=== PATIENT | male | born 1990 | race Caucasian/White ===

== ENCOUNTER 2016-10-02 10:03 | Inpatient (IN) | payer OTHER ==
[2016-10-02 10:38] VITALS: BMI 25.0
--- NOTE | 2016-10-02 14:56 | HP ---
COWS - Scale Resting Pulse: 0= [place] 80 or Below Sweatin= Chills/Flushing Restless Observation: 1= Difficult to Sit Still Pupil Size: 0= Normal to Room Light Bone or Joint Aches: 1= Mild Discomfort Runny Nose/ Eye Tearin= Runny Nose/Eyes GI Upset > 30mins: 2= Nausea/Diarrhea Tremor Observation: 2= Slight Tremor Visible Yawning Observation: 1= 1-2x During Session Anxiety or Irritability: 2=Irritable/Anxious Goose Flesh Skin: 3=Piloerection COWS Score: 15 CIWA Score - CIWA Score Nausea/Vomitin-Int. Nausea w/Dry Heave Muscle Tremors: 2 Anxiety: 3 Agitation: 2 Paroxysmal Sweats: 3 Orientation: 0-Oriented Tacttile Disturbances: 2-Mild Itch/Numbness/Burn Auditory Disturbances: 0-None Visual Disturbances: 0-None Headache: 3-Moderate CIWA-Ar Total Score: 19 Admission ROS BHS - HPI Chief Complaint: "I just have to get clean so that I can move forward with other areas of my life." Pt. is here to Detox from Heroin and Xanax. Allergies/Adverse Reactions: Allergies Allergy/AdvReac Type Severity Reaction Status Date / Time No Known Allergies Allergy Verified 10/02/16 13:37 History of Present Illness: Pt. is a 26 YO male here to Detox from Heroin and Xanax. This is pt.'s first Detox admission at [facility]. Pt. has had 1 previous Detox admission at [facility] many years ago. Pt. also had 1 previous rehab admission at [facility] ([place], [place]). Longest recent period of non-substance use: approx. 15 months ([id number]). Exam Limitations: No Limitations - Ebola screening Have you traveled outside of the country in the last 21 days: No Have you had contact with anyone from an Ebola affected area: No Have you been sick,other than usual withdrawal symptoms: No Do you have a fever: No - Review of Systems Constitutional: Chills, Diaphoresis, Fever, Loss of Appetite, Malaise, Night Sweats, Changes in sleep, Unintentional Wgt. Loss (Lost approx. 15 lbs. over last 3 months.) EENT: reports: Nose Congestion, Sinus Pressure, Dental Problems (Dental Infection (currently taking prescribed Penicillin).) Respiratory: reports: No Symptoms reported Cardiac: reports: No Symptoms Reported GI: reports: Diarrhea, Nausea, Poor Appetite, Vomiting, Indigestion (Heartburn.) : reports: No Symptoms Reported Musculoskeletal: reports: Back Pain Integumentary: reports: No Symptoms Reported Neuro: reports: Headache, Tremors Endocrine: reports: No Symptoms Reported Hematology: reports: No Symptoms Reported Psychiatric: reports: Judgement Intact, Mood/Affect Appropiate, Orientated x3, Anxious, Depressed (No treatment in past.) Other Systems: Reviewed and Negative Patient History - Patient Medical History Hx Anemia: No Hx Asthma: No Hx Chronic Obstructive Pulmonary Disease (COPD): No Hx Cancer: No Hx Cardiac Disorders: No Hx Congestive Heart Failure: No Hx Hypertension: No Hx Hypercholesterolemia: No Hx Pacemaker: No HX Cerebrovascular Accident: No Hx Seizures: No Hx Dementia: No Hx Diabetes: No Hx Gastrointestinal Disorders: No Hx Liver Disease: No Hx Genitourinary Disorders: No Hx Sexually Transmitted Disorders: No Hx Renal Disease (ESRD): No Hx Thyroid Disease: No Hx Human Immunodeficiency Virus (HIV): No (Last Tested: approx. 3 months ago: NEGATIVE.) Hx Hepatitis C: Yes (Positive Antibody Test; Negative Viral Load.) Hx Depression: Yes (No treatment in past.) Hx Suicide Attempt: No (PATIENT DENIES CURRENT SI / HI.) Hx Bipolar Disorder: No Hx Schizophrenia: No Other Medical History: DENIES. - Patient Surgical History Past Surgical History: No Hx Neurologic Surgery: No Hx Cataract Extraction: No Hx Cardiac Surgery: No Hx Lung Surgery: No Hx Breast Surgery: No Hx Breast Biopsy: No Hx Abdominal Surgery: No Hx Appendectomy: No Hx Cholecystectomy: No Hx Genitourinary Surgery: No Hx Orthopedic Surgery: No Anesthesia Reaction: No - PPD History Previous Implant?: Yes Documented Results: Negative w/o proof Implanted On Prior R Admission?: No PPD to be Administered?: Yes - Reproductive History Patient is a Female of Child Bearing Age (11 -55 yrs old): No (PATIENT IS MALE.) - Smoking Cessation Smoking history: Current every day smoker Have you smoked in the past 12 months: Yes Aproximately how many cigarettes per day: 10 Cigars Per Day: 0 Hx Chewing Tobacco Use: No Initiated information on smoking cessation: Yes 'Breaking Loose' booklet given: 10/02/16 (GIVEN ON UNIT.) - Substance & Tx. History Hx Alcohol Use: No Hx Substance Use: Yes Substance Use Type: Heroin, Tranquilizers Hx Substance Use Treatment: Yes (Previous Detox admission at [facility] and Rehab at [facility].) - Substances Abused Heroin Route: Injection Frequency: Daily Amount used: 10 bags Age of first use: 16 Date of Last Use: 10/01/16 Alprazolam (Xanax) Route: Oral Frequency: Daily Amount used: 2-4mg Age of first use: 17 Date of Last Use: 10/01/16 Family Disease History - Family Disease History Family History: Denies Admission Physical Exam [facility] - Vital Signs Vital Signs: Vital Signs - 24 hr 10/02/16 10:36 Temperature 96.8 F L Pulse Rate 66 Respiratory 20 Rate Blood Pressure 118/80 - Physical General Appearance: Yes: No Apparent Distress, Nourished, Appropriately Dressed , Tremorous, Anxious HEENTM: Yes: Hearing grossly Normal, Normocephalic, Normal Voice, HOWARD, Pharynx Normal Respiratory: Yes: Chest Non-Tender, Lungs Clear, No Respiratory Distress, No Accessory Muscle Use Neck: Yes: No masses,lesions,Nodules, Supple, Trachea in good position Breast: Yes: Breast Exam Deferred Cardiology: Yes: Regular Rhythm, Regular Rate, S1, S2 Abdominal: Yes: Normal Bowel Sounds, Non Tender, Flat, Soft Genitourinary: Yes: Within Normal Limits Back: Yes: Decreased Range of Motion Musculoskeletal: Yes: Gait Steady, Back pain Extremities: Yes: Normal Range of Motion, Non-Tender, Tremors Neurological: Yes: Fully Oriented, Alert, Normal Mood/Affect, Normal Response Integumentary: Yes: Normal Color, Dry, Warm, Track [place] (Noted on Bilateral Forearms and cubital creases. No signs of infection noted at any affected site.) Lymphatic: Yes: Within Normal Limits - Diagnostic (1) Opioid dependence with withdrawal Current Visit: Yes Status: Acute (2) Sedative, hypnotic or anxiolytic dependence with withdrawal, uncomplicated Current Visit: Yes Status: Acute (3) Nicotine dependence Current Visit: Yes Status: Chronic Qualifiers: Nicotine product type: cigarettes Substance use status: uncomplicated Qualified Code(s): F17.210 - Nicotine dependence, cigarettes, uncomplicated (4) Dental infection Current Visit: Yes Status: Acute Comment: Currently Prescribed Penicillin. (5) HCV antibody positive Current Visit: Yes Status: Chronic Cleared for Admission [facility] - Detox or Rehab [facility] Level of Care: Medically Managed Detox Regimen/Protocol: Methadone/Valium [facility] Breath Alcohol Content Breath Alcohol Content: 0 Urine Drug Screen - Results Drug Screen Negative: No Urine Drug Screen Results: OPI-Opiates, BZO-Benzodiazepines
[2016-10-02] MEDS ORDERED: LOPERAMIDE HCL 2 MG CAPSULE PO PRN (15:38)
[2016-10-02] MEDS ORDERED: MAGNESIUM HYDROX 2400MG/30ML ORAL SUSPENSION 30 ML CUP PO PRN (15:38)
[2016-10-02] MEDS ORDERED: ACETAMINOPHEN 325 MG TABLET (FP) PO PRN (15:38)
[2016-10-02] MEDS ORDERED: MENTHOL/PHENOL 1 EACH UD MM PRN (15:38)
[2016-10-02] MEDS ORDERED: MAG HYDROX/AL HYDROX/SIMETH 30 ML UNIT-DOSE CUP PO PRN (15:38)
[2016-10-02] MEDS ORDERED: IBUPROFEN 400 MG TABLET (FP) PO PRN (15:38)
[2016-10-02] MEDS ORDERED: P-EPHED 60MG/TRIPROLIDI 2.5MG TABLET PO PRN (15:38)
[2016-10-02] MEDS ORDERED: MAGNESIUM CITRATE 300 ML BOTTLE PO PRN (15:38)
[2016-10-02] MEDS ORDERED: guaiFENesin/D-METHORPHAN HB 10 ML UNIT-DOSE CUPS PO PRN (15:38)
[2016-10-02] MEDS ORDERED: diazePAM 5 MG TABLET PO ONE (16:15)
[2016-10-02] MEDS ORDERED: METHADONE HCL 10 MG TABLET (FOR DETOX USE ONLY) PO ONE ×2 (16:30→23:00)
[2016-10-02] MEDS: NICOTINE 21 MG/24 HOURS TOPICAL PATCH TD SCH (17:02)
[2016-10-02] MEDS: NICOTINE POLACRILEX 2 MG GUM BUC PRN (17:05)
[2016-10-02] MEDS: PENICILLIN V POTASSIUM 500 MG TABLET PO SCH ×2 (18:05→23:24)
[2016-10-02] MEDS: diazePAM 5 MG TABLET PO SCH (22:33)
[2016-10-02] MEDS: THIAMINE HCL 100 MG TABLET (FP) PO SCH (22:33)
[2016-10-02] MEDS: diphenhydrAMINE HCL 50 MG CAPSULE PO PRN (22:33)
[2016-10-02 23:02] LABS: URINE APPEARANCE CLEAR; URINE BILIRUBIN NEGATIVE (NEGATIVE); URINE BLOOD NEGATIVE (NEGATIVE); URINE COLOR LTYELLOW; URINE GLUCOSE (UA) NEGATIVE (NEGATIVE); URINE KETONE NEGATIVE (NEGATIVE); URINE LEUK ESTERASE NEGATIVE (NEGATIVE); URINE NITRITE NEGATIVE (NEGATIVE); URINE PROTEIN NEGATIVE (NEGATIVE); URINE UROBILINOGEN NEGATIVE mg/dL (0.2-1.0)
[2016-10-03] MEDS: diazePAM 5 MG TABLET PO SCH ×3 (06:08→22:28)
[2016-10-03] MEDS: PENICILLIN V POTASSIUM 500 MG TABLET PO SCH ×4 (07:11→23:50)
[2016-10-03 07:58] LABS: HIV 1 & 2 AB NEGATIVE; HIV 1 AGp24 NEGATIVE
[2016-10-03] MEDS: diazePAM 5 MG TABLET PO PRN ×2 (09:14→17:25)
[2016-10-03] MEDS ORDERED: METHADONE HCL 10 MG TABLET (FOR DETOX USE ONLY) PO SCH (10:00)
[2016-10-03 10:02] LABS: MCH 29.5 pg (25.7-33.7); MCHC 34.2 g/dl (32.0-35.9); MEAN CELL VOLUME 86.2 fl (80-96); MEAN PLT VOLUME 8.4 fl (7.5-11.1); PLATELET COUNT 201 K/MM3 (134-434); RDW 12.2 % (11.9-15.9); WHITE BLOOD COUNT 7.3 K/mm3 (4.0-10.0)
[2016-10-03 10:16] LABS: ALBUMIN 4.1 g/dl (3.4-5.0); ALK PHOS 110 U/L (45-117); ANION GAP 5 (8-16); BILIRUBIN,TOTAL 0.2 mg/dL (0.2-1.0); CALCIUM 9.1 mg/dL (8.5-10.1); CO2 31 mmol/L (21-32); CREATININE 0.9 mg/dL (0.7-1.3); GLUCOSE,RANDOM 101 mg/dL (74-106); SGOT/AST 32 U/L (15-37); SGPT/ALT 70 U/L (12-78); TOT PROT 7.4 g/dl (6.4-8.2)
[2016-10-03] MEDS: PRENATAL VITAMINS W/ FOLIC ACID TABLET (FP) PO SCH (10:42)
[2016-10-03] MEDS: NICOTINE 21 MG/24 HOURS TOPICAL PATCH TD SCH (10:43)
--- NOTE | 2016-10-03 10:55 | CONSULT ---
[facility] Psychiatric Consult - Data Date of interview: 10/03/16 Admission source: [facility] Identifying data: First admission to [facility] for this 26 y/o male seeking detoxification treatment on for heroin dependence.Patient is single without children,domiciled (lives with his parents),unemployed and dependent on parental assistance. Substance Abuse History: Fully discussed with the patient.Mr Castle confirms pattern of substance use contained in this [facility] report : Smoking Cessation. Smoking history: Current every day smoker. Have you smoked in the past 12 months: Yes. Aproximately how many cigarettes per day: 10. Cigars Per Day: 0. Hx Chewing Tobacco Use: No. Initiated information on smoking cessation: Yes. 'Breaking Loose' booklet given: 10/02/16 (GIVEN ON UNIT.). - Substance & Tx. History. Hx Alcohol Use: No. Hx Substance Use: Yes. Substance Use Type: Heroin, Tranquilizers. Hx Substance Use Treatment: Yes (Previous Detox admission at [facility] and Rehab at [facility] - Substances Abused. Heroin. Route: Injection. Frequency: Daily. Amount used: 10 bags. Age of first use: 16. Date of Last Use: 10/01/16. Alprazolam (Xanax) . Route: Oral. Frequency: Daily. Amount used: 2-4mg. Age of first use: 17. Date of Last Use: 10/01/16 Medical History: Hepatitis C. Psychiatric History: Patient denies. Physical/Sexual Abuse/Trauma History: No history reported. Additional Comment: Urine Drug Screen Results: OPI-Opiates, BZO- Benzodiazepines.Noted. Mental Status Exam - Mental Status Exam Alert and Oriented to: Time, Place, Person Cognitive Function: Good Patient Appearance: Well Groomed Mood: Hopeful, Euthymic Affect: Appropriate, Normal Range Patient Behavior: Appropriate, Cooperative Speech Pattern: Clear Voice Loudness: Normal Thought Process: Intact, Goal Oriented Thought Disorder: Not Present Hallucinations: Denies Suicidal Ideation: Denies Homicidal Ideation: Denies Insight/Judgement: Poor Sleep: Poorly, Difficulty falling asleep Appetite: Good Muscle strength/Tone: Normal Gait/Station: Normal Psychiatric Findings - Problem List ([place] 1, 2,3) (1) Opioid dependence with withdrawal Current Visit: Yes Status: Acute (2) Sedative, hypnotic or anxiolytic dependence with withdrawal, uncomplicated Current Visit: Yes Status: Acute (3) Nicotine dependence Current Visit: Yes Status: Acute Qualifiers: Nicotine product type: cigarettes Substance use status: uncomplicated Qualified Code(s): F17.210 - Nicotine dependence, cigarettes, uncomplicated (4) HCV antibody positive Current Visit: Yes Status: Chronic (5) Insomnia Current Visit: Yes Status: Acute - Initial Treatment Plan Initial Treatment Plan: Psychoeducation.Detoxification is under way.Patient requests a low dose of seroquel to address his insomnia (history of good response/tolerability to that drug).Side effects/benefits discussed,including potential for metabolic syndrome,oversedation/falls,abnormal involuntary movements and cardiovascular adverse events.Mr Castle agrees to this careplan.Observation.
[2016-10-03] MEDS: NICOTINE POLACRILEX 2 MG GUM BUC PRN (13:32)
--- NOTE | 2016-10-03 16:30 | PN ---
[facility] CIWA - CIWA Score Nausea/Vomitin-No Nausea/No Vomiting Muscle Tremors: 2 Anxiety: 4-Mod. Anxious/Guarded Agitation: 1-Slight > Activity Paroxysmal Sweats: 3 Orientation: 0-Oriented Tacttile Disturbances: 3-Moderate Itch/Numb/Burn Auditory Disturbances: 2-Mild Harshness/Frighten Visual Disturbances: 0-None Headache: 0-None Present CIWA-Ar Total Score: 15 BHS COWS - Scale Resting Pulse: 0= [place] 80 or Below Sweatin= Chills/Flushing Restless Observation: 0= Sits Still Pupil Size: 0= Normal to Room Light Bone or Joint Aches: 2= Severe Diffuse Aches Runny Nose/ Eye Tearin= Runny Nose/Eyes GI Upset > 30mins: 1= Stomach Cramp Tremor Observation of Outstretched Hands: 2= Slight Tremor Visible Yawning Observation: 1= 1-2x During Session Anxiety or Irritability: 2=Irritable/Anxious Goose Flesh Skin: 3=Piloerection COWS Score: 14 S Progress Note (SOAP) Subjective: Fatigue, Sweating, Interrupted Sleep, Body Aches. Objective: PT. A & O X 3, OBSERVED AMBULATING ON UNIT. NO ACUTE DISTRESS. PT. DENIES CHEST PAIN. 10/03/16 16:28 Vital Signs Temperature 98.7 F 10/03/16 13:25 Pulse Rate 67 10/03/16 13:25 Respiratory Rate 18 10/03/16 13:25 Blood Pressure 127/76 10/03/16 13:25 O2 Sat by Pulse Oximetry (%) Laboratory Tests 10/02/16 10/02/16 10/03/16 14:00 22:50 06:00 WBC 7.3 RBC 5.26 Hgb 15.5 Hct 45.4 MCV 86.2 MCH 29.5 MCHC 34.2 RDW 12.2 Plt Count 201 MPV 8.4 Sodium Potassium Chloride Carbon Dioxide Anion Gap BUN Creatinine Creat Clearance w eGFR Random Glucose Calcium Total Bilirubin AST ALT Alkaline Phosphatase Total Protein Albumin Urine Color Ltyellow Urine Appearance Clear Urine pH 5.0 Ur Specific [place] 1.020 Urine Protein Negative Urine Glucose (UA) Negative Urine Ketones Negative Urine Blood Negative Urine Nitrite Negative Urine Bilirubin Negative Urine Urobilinogen Negative Ur Leukocyte Esterase Negative RPR Titer HIV 1&2 Antibody Screen Negative HIV P24 Antigen Negative 10/03/16 10/03/16 06:00 06:00 WBC RBC Hgb Hct MCV MCH MCHC RDW Plt Count MPV Sodium 137 Potassium 5.0 Chloride 101 Carbon Dioxide 31 Anion Gap 5 L BUN 19 H Creatinine 0.9 Creat Clearance w eGFR > 60 Random Glucose 101 Calcium 9.1 Total Bilirubin 0.2 AST 32 ALT 70 Alkaline Phosphatase 110 Total Protein 7.4 Albumin 4.1 Urine Color Urine Appearance Urine pH Ur Specific [place] Urine Protein Urine Glucose (UA) Urine Ketones Urine Blood Urine Nitrite Urine Bilirubin Urine Urobilinogen Ur Leukocyte Esterase RPR Titer Nonreactive HIV 1&2 Antibody Screen HIV P24 Antigen LABS NOTED. Assessment: 10/03/16 16:29 WITHDRAWAL SYMPTOMS. Plan: CONTINUE DETOX.
[2016-10-03] MEDS ORDERED: QUEtiapine FUMARATE 50 MG TABLET PO SCH (22:00)
[2016-10-03] MEDS: diphenhydrAMINE HCL 50 MG CAPSULE PO PRN (22:28)
[2016-10-03] MEDS: THIAMINE HCL 100 MG TABLET (FP) PO SCH (22:28)
[2016-10-04] MEDS: diazePAM 5 MG TABLET PO PRN ×3 (06:13→17:25)
[2016-10-04] MEDS: PENICILLIN V POTASSIUM 500 MG TABLET PO SCH ×4 (06:14→23:28)
--- NOTE | 2016-10-04 08:16 | EKG ---
Test Reason : Blood Pressure : / mmHG Vent. Rate : 064 BPM Atrial Rate : 064 BPM P-R Int : 114 ms QRS Dur : 096 ms QT Int : 396 ms P-R-T Axes : 060 084 048 degrees QTc Int : 408 ms NORMAL SINUS RHYTHM NORMAL ECG NO PREVIOUS ECGS AVAILABLE Confirmed by GWEN RICO, GISEL ([id number]) on 10/04/2016 8:16:04 AM Referred By: Erlin Islas Confirmed By:GISEL HIDALGO MD
[2016-10-04] MEDS: METHADONE HCL 5 MG TABLET (FOR DETOX USE ONLY) PO SCH (10:48)
[2016-10-04] MEDS: PRENATAL VITAMINS W/ FOLIC ACID TABLET (FP) PO SCH (10:48)
[2016-10-04] MEDS: diazePAM 5 MG TABLET PO SCH ×2 (10:48→22:10)
[2016-10-04] MEDS: NICOTINE 21 MG/24 HOURS TOPICAL PATCH TD SCH (10:49)
[2016-10-04] MEDS: NICOTINE POLACRILEX 2 MG GUM BUC PRN (13:21)
--- NOTE | 2016-10-04 15:54 | PN ---
[facility] CIWA - CIWA Score Nausea/Vomitin-Mild Nausea/No Vomiting Muscle Tremors: 3 Anxiety: 4-Mod. Anxious/Guarded Agitation: 3 Paroxysmal Sweats: 3 Orientation: 0-Oriented Tacttile Disturbances: 1-Very Mild Itch/Numbness Auditory Disturbances: 0-None Visual Disturbances: 2-Mild Sensitivity Headache: 0-None Present CIWA-Ar Total Score: 17 S COWS - Scale Resting Pulse: 0= [place] 80 or Below Sweatin= Chills/Flushing Restless Observation: 1= Difficult to Sit Still Pupil Size: 0= Normal to Room Light Bone or Joint Aches: 2= Severe Diffuse Aches Runny Nose/ Eye Tearin= Runny Nose/Eyes GI Upset > 30mins: 1= Stomach Cramp Tremor Observation of Outstretched Hands: 2= Slight Tremor Visible Yawning Observation: 2= >3x During Session Anxiety or Irritability: 2=Irritable/Anxious Goose Flesh Skin: 0=Smooth Skin COWS Score: 13 S Progress Note (SOAP) Subjective: Anxious, Interrupted Sleep, Sweating. Objective: PT. A & O X 3, OBSERVED AMBULATING AMBULATING ON UNIT. NO ACUTE DISTRESS. 10/04/16 15:53 Vital Signs Temperature 97.7 F 10/04/16 14:08 Pulse Rate 68 10/04/16 14:08 Respiratory Rate 18 10/04/16 14:08 Blood Pressure 126/78 10/04/16 14:08 O2 Sat by Pulse Oximetry (%) Laboratory Tests 10/02/16 10/02/16 10/03/16 14:00 22:50 06:00 WBC 7.3 RBC 5.26 Hgb 15.5 Hct 45.4 MCV 86.2 MCH 29.5 MCHC 34.2 RDW 12.2 Plt Count 201 MPV 8.4 Sodium Potassium Chloride Carbon Dioxide Anion Gap BUN Creatinine Creat Clearance w eGFR Random Glucose Calcium Total Bilirubin AST ALT Alkaline Phosphatase Total Protein Albumin Urine Color Ltyellow Urine Appearance Clear Urine pH 5.0 Ur Specific [place] 1.020 Urine Protein Negative Urine Glucose (UA) Negative Urine Ketones Negative Urine Blood Negative Urine Nitrite Negative Urine Bilirubin Negative Urine Urobilinogen Negative Ur Leukocyte Esterase Negative RPR Titer HIV 1&2 Antibody Screen Negative HIV P24 Antigen Negative 10/03/16 10/03/16 06:00 06:00 WBC RBC Hgb Hct MCV MCH MCHC RDW Plt Count MPV Sodium 137 Potassium 5.0 Chloride 101 Carbon Dioxide 31 Anion Gap 5 L BUN 19 H Creatinine 0.9 Creat Clearance w eGFR > 60 Random Glucose 101 Calcium 9.1 Total Bilirubin 0.2 AST 32 ALT 70 Alkaline Phosphatase 110 Total Protein 7.4 Albumin 4.1 Urine Color Urine Appearance Urine pH Ur Specific [place] Urine Protein Urine Glucose (UA) Urine Ketones Urine Blood Urine Nitrite Urine Bilirubin Urine Urobilinogen Ur Leukocyte Esterase RPR Titer Nonreactive HIV 1&2 Antibody Screen HIV P24 Antigen labs noted. Assessment: 10/04/16 15:54 WITHDRAWAL SYMPTOMS. Plan: CONTINUE DETOX.
--- NOTE | 2016-10-04 18:22 | PN ---
S Progress Note Note: Psychiarty Attending's probation supervisor note : Approached by patient. Issue : requests increase of seroquel Reason : minimal sleep improvement. Intervention : Seroquel is raised to 100 mg po hs. Mr Castle agrees with this plan.
[2016-10-04] MEDS: QUEtiapine FUMARATE 100 MG TABLET (FP) PO SCH (22:10)
[2016-10-04] MEDS: diphenhydrAMINE HCL 50 MG CAPSULE PO PRN (22:10)
[2016-10-04] MEDS: THIAMINE HCL 100 MG TABLET (FP) PO SCH (22:11)
[2016-10-05] MEDS: PENICILLIN V POTASSIUM 500 MG TABLET PO SCH ×4 (06:04→23:39)
[2016-10-05] MEDS: diazePAM 5 MG TABLET PO PRN ×2 (06:07→12:45)
[2016-10-05] MEDS: METHADONE HCL 5 MG TABLET (FOR DETOX USE ONLY) PO SCH (10:49)
[2016-10-05] MEDS: diazePAM 5 MG TABLET PO SCH ×2 (10:50→22:21)
[2016-10-05] MEDS: NICOTINE 21 MG/24 HOURS TOPICAL PATCH TD SCH (10:51)
[2016-10-05] MEDS: PRENATAL VITAMINS W/ FOLIC ACID TABLET (FP) PO SCH (10:51)
[2016-10-05] MEDS: NICOTINE POLACRILEX 2 MG GUM BUC PRN ×2 (10:54→17:15)
--- NOTE | 2016-10-05 14:08 | PN ---
BHS Progress Note (SOAP) Subjective: Anxious, sweating, nausea, interrupted sleep Objective: 10/05/16 14:07 Last Vital Signs Temp Pulse Resp BP Pulse Ox 96.7 F L 69 18 118/83 10/05/16 10:19 10/05/16 10:19 10/05/16 10:19 10/05/16 10:19 Laboratory Tests 10/02/16 10/02/16 10/03/16 14:00 22:50 06:00 WBC 7.3 RBC 5.26 Hgb 15.5 Hct 45.4 MCV 86.2 MCH 29.5 MCHC 34.2 RDW 12.2 Plt Count 201 MPV 8.4 Sodium Potassium Chloride Carbon Dioxide Anion Gap BUN Creatinine Creat Clearance w eGFR Random Glucose Calcium Total Bilirubin AST ALT Alkaline Phosphatase Total Protein Albumin Urine Color Ltyellow Urine Appearance Clear Urine pH 5.0 Ur Specific [place] 1.020 Urine Protein Negative Urine Glucose (UA) Negative Urine Ketones Negative Urine Blood Negative Urine Nitrite Negative Urine Bilirubin Negative Urine Urobilinogen Negative Ur Leukocyte Esterase Negative RPR Titer HIV 1&2 Antibody Screen Negative HIV P24 Antigen Negative 10/03/16 10/03/16 06:00 06:00 WBC RBC Hgb Hct MCV MCH MCHC RDW Plt Count MPV Sodium 137 Potassium 5.0 Chloride 101 Carbon Dioxide 31 Anion Gap 5 L BUN 19 H Creatinine 0.9 Creat Clearance w eGFR > 60 Random Glucose 101 Calcium 9.1 Total Bilirubin 0.2 AST 32 ALT 70 Alkaline Phosphatase 110 Total Protein 7.4 Albumin 4.1 Urine Color Urine Appearance Urine pH Ur Specific [place] Urine Protein Urine Glucose (UA) Urine Ketones Urine Blood Urine Nitrite Urine Bilirubin Urine Urobilinogen Ur Leukocyte Esterase RPR Titer Nonreactive HIV 1&2 Antibody Screen HIV P24 Antigen Labs noted Assessment: 10/05/16 14:08 Withdrawal symptoms Plan: Continue detox
[2016-10-05] MEDS: hydrOXYzine PAMOATE 50 MG CAPSULE (FP) PO PRN (17:15)
[2016-10-05] MEDS: QUEtiapine FUMARATE 100 MG TABLET (FP) PO SCH (22:21)
[2016-10-05] MEDS: THIAMINE HCL 100 MG TABLET (FP) PO SCH (22:21)
[2016-10-06] MEDS: PENICILLIN V POTASSIUM 500 MG TABLET PO SCH ×4 (05:40→23:31)
[2016-10-06] MEDS: hydrOXYzine PAMOATE 50 MG CAPSULE (FP) PO PRN ×2 (05:41→17:38)
[2016-10-06] MEDS ORDERED: METHADONE HCL 10 MG TABLET (FOR DETOX USE ONLY) PO SCH (10:00)
[2016-10-06] MEDS ORDERED: diazePAM 5 MG TABLET PO SCH (10:00)
[2016-10-06] MEDS: NICOTINE 21 MG/24 HOURS TOPICAL PATCH TD SCH (10:24)
[2016-10-06] MEDS: PRENATAL VITAMINS W/ FOLIC ACID TABLET (FP) PO SCH (10:24)
[2016-10-06] MEDS: NICOTINE POLACRILEX 2 MG GUM BUC PRN (10:26)
--- NOTE | 2016-10-06 13:40 | PN ---
BHS Progress Note (SOAP) Subjective: Interrupted sleep, Sweating. Objective: PT. A & O X 3, OBSERVED AMBULATING ON UNIT. NO ACUTE DISTRESS. 10/06/16 13:38 Vital Signs Temperature 97.6 F 10/06/16 13:13 Pulse Rate 75 10/06/16 13:13 Respiratory Rate 18 10/06/16 13:13 Blood Pressure 150/87 10/06/16 13:13 O2 Sat by Pulse Oximetry (%) Laboratory Tests 10/02/16 10/02/16 10/03/16 14:00 22:50 06:00 WBC 7.3 RBC 5.26 Hgb 15.5 Hct 45.4 MCV 86.2 MCH 29.5 MCHC 34.2 RDW 12.2 Plt Count 201 MPV 8.4 Sodium Potassium Chloride Carbon Dioxide Anion Gap BUN Creatinine Creat Clearance w eGFR Random Glucose Calcium Total Bilirubin AST ALT Alkaline Phosphatase Total Protein Albumin Urine Color Ltyellow Urine Appearance Clear Urine pH 5.0 Ur Specific [place] 1.020 Urine Protein Negative Urine Glucose (UA) Negative Urine Ketones Negative Urine Blood Negative Urine Nitrite Negative Urine Bilirubin Negative Urine Urobilinogen Negative Ur Leukocyte Esterase Negative RPR Titer HIV 1&2 Antibody Screen Negative HIV P24 Antigen Negative 10/03/16 10/03/16 06:00 06:00 WBC RBC Hgb Hct MCV MCH MCHC RDW Plt Count MPV Sodium 137 Potassium 5.0 Chloride 101 Carbon Dioxide 31 Anion Gap 5 L BUN 19 H Creatinine 0.9 Creat Clearance w eGFR > 60 Random Glucose 101 Calcium 9.1 Total Bilirubin 0.2 AST 32 ALT 70 Alkaline Phosphatase 110 Total Protein 7.4 Albumin 4.1 Urine Color Urine Appearance Urine pH Ur Specific [place] Urine Protein Urine Glucose (UA) Urine Ketones Urine Blood Urine Nitrite Urine Bilirubin Urine Urobilinogen Ur Leukocyte Esterase RPR Titer Nonreactive HIV 1&2 Antibody Screen HIV P24 Antigen LABS NOTED. Assessment: 10/06/16 13:39 WITHDRAWAL SYMPTOMS. Plan: CONTINUE DETOX.
[2016-10-06] MEDS: QUEtiapine FUMARATE 100 MG TABLET (FP) PO SCH (22:23)
[2016-10-06] MEDS: THIAMINE HCL 100 MG TABLET (FP) PO SCH (22:23)
[2016-10-07] MEDS: hydrOXYzine PAMOATE 50 MG CAPSULE (FP) PO PRN (05:15)
[2016-10-07] MEDS ORDERED: METHADONE HCL 5 MG TABLET (FOR DETOX USE ONLY) PO SCH (06:00)
[2016-10-07 06:28] VITALS: BP 120/80; PULSE 72; TEMP 98.5
[2016-10-07] MEDS: PENICILLIN V POTASSIUM 500 MG TABLET PO SCH (06:52)
--- NOTE | 2016-10-07 11:54 | DS ---
[facility] Detox Discharge Summary Admission Date: 10/02/16 Discharge Date: 10/07/16 - History Present History: Opioid Dependence, Sedative Dependence Additional Comments: PT DISCHARGED EARLIER DURING PREVIOUS SHIFT. INSTRUCTED TO F/U AT [facility]. Pertinent Past History: HCV DENTAL INFECTION - Physical Exam Results Vital Signs: Vital Signs Temperature 98.5 F 10/07/16 06:28 Pulse Rate 72 10/07/16 06:28 Respiratory Rate 16 10/07/16 06:28 Blood Pressure 120/80 10/07/16 06:28 O2 Sat by Pulse Oximetry (%) Pertinent Admission Physical Exam Findings: WITHDRAWAL SX Laboratory Last Values WBC 7.3 K/mm3 (4.0-10.0) 10/03/16 06:00 RBC 5.26 M/mm3 (4.00-5.60) 10/03/16 06:00 Hgb 15.5 GM/dL (11.7-16.9) 10/03/16 06:00 Hct 45.4 % (35.4-49) 10/03/16 06:00 MCV 86.2 fl (80-96) 10/03/16 06:00 MCH 29.5 pg (25.7-33.7) 10/03/16 06:00 MCHC 34.2 g/dl (32.0-35.9) 10/03/16 06:00 RDW 12.2 % (11.9-15.9) 10/03/16 06:00 Plt Count 201 K/MM3 (134-434) 10/03/16 06:00 MPV 8.4 fl (7.5-11.1) 10/03/16 06:00 Sodium 137 mmol/L (136-145) 10/03/16 06:00 Potassium 5.0 mmol/L (3.5-5.1) 10/03/16 06:00 Chloride 101 mmol/L (98-107) 10/03/16 06:00 Carbon Dioxide 31 mmol/L (21-32) 10/03/16 06:00 Anion Gap 5 (8-16) L 10/03/16 06:00 BUN 19 mg/dL (7-18) H 10/03/16 06:00 Creatinine 0.9 mg/dL (0.7-1.3) 10/03/16 06:00 Creat Clearance w eGFR > 60 (>60) 10/03/16 06:00 Random Glucose 101 mg/dL (74-106) 10/03/16 06:00 Calcium 9.1 mg/dL (8.5-10.1) 10/03/16 06:00 Total Bilirubin 0.2 mg/dL (0.2-1.0) 10/03/16 06:00 AST 32 U/L (15-37) 10/03/16 06:00 ALT 70 U/L (12-78) 10/03/16 06:00 Alkaline Phosphatase 110 U/L (45-117) 10/03/16 06:00 Total Protein 7.4 g/dl (6.4-8.2) 10/03/16 06:00 Albumin 4.1 g/dl (3.4-5.0) 10/03/16 06:00 Urine Color Ltyellow 10/02/16 22:50 Urine Appearance Clear 10/02/16 22:50 Urine pH 5.0 (5.0-8.0) 10/02/16 22:50 Ur Specific [place] 1.020 (1.005-1.025) 10/02/16 22:50 Urine Protein Negative (NEGATIVE) 10/02/16 22:50 Urine Glucose (UA) Negative (NEGATIVE) 10/02/16 22:50 Urine Ketones Negative (NEGATIVE) 10/02/16 22:50 Urine Blood Negative (NEGATIVE) 10/02/16 22:50 Urine Nitrite Negative (NEGATIVE) 10/02/16 22:50 Urine Bilirubin Negative (NEGATIVE) 10/02/16 22:50 Urine Urobilinogen Negative mg/dL (0.2-1.0) 10/02/16 22:50 Ur Leukocyte Esterase Negative (NEGATIVE) 10/02/16 22:50 RPR Titer Nonreactive (NONREACTIVE) 10/03/16 06:00 HIV 1&2 Antibody Screen Negative 10/02/16 14:00 HIV P24 Antigen Negative 10/02/16 14:00 - Treatment Hospital Course: Detox Protocol Followed, Detoxed Safely, Responded well Patient has Accepted a Rehab Referral to: [facility] OPD - Medication Discharge Medications: Ambulatory Orders Penicillin V Potassium [Pen Vee K -] 500 mg PO Q6H 10/02/16 - Diagnosis (1) Dental infection Status: Acute (2) Insomnia Status: Acute (3) Nicotine dependence Status: Acute Qualifiers: Nicotine product type: cigarettes Substance use status: in withdrawal Qualified Code(s): F17.213 - Nicotine dependence, cigarettes, with withdrawal (4) Opioid dependence with withdrawal Status: Acute (5) Sedative, hypnotic or anxiolytic dependence with withdrawal, uncomplicated Status: Acute (6) HCV antibody positive Status: Chronic - AMA Did Patient Leave Against Medical Advice: No
== END 2016-10-07 07:05 | disposition home or self-care (01) | DRG 773 ==
LOC: YASAS 10:03 → Y3N 14:45
PROVIDERS: ADMIT Internal Medicine; ATTEND Internal Medicine
PROC: HZ2ZZZZ Detoxification Services for Substance Abuse Treatment (ICD-10-PCS; principal; 2016-10-02)
DX: F11.23 Opioid dependence with withdrawal (principal); F13.230 Sedative, hypnotic or anxiolytic dependence with withdrawal, uncomplicated; F17.213 Nicotine dependence, cigarettes, with withdrawal; G47.00 Insomnia, unspecified; B18.2 Chronic viral hepatitis C; K04.7 Periapical abscess without sinus
CPT/HCPCS: 36415; 80053; 81003; 85027; 86593; 87389; 93005; 93010

== ENCOUNTER 2016-12-06 11:35 | Inpatient (IN) | payer OTHER ==
[2016-12-06 15:29] VITALS: BMI 24.4
--- NOTE | 2016-12-06 15:41 | HP ---
COWS - Scale Resting Pulse: 1= [place] 81-100 Sweatin=Flushed/Facial Moisture Restless Observation: 1= Difficult to Sit Still Pupil Size: 2= Moderately Dilated Bone or Joint Aches: 2= Severe Diffuse Aches Runny Nose/ Eye Tearin= Runny Nose/Eyes GI Upset > 30mins: 2= Nausea/Diarrhea Tremor Observation: 2= Slight Tremor Visible Yawning Observation: 1= 1-2x During Session Anxiety or Irritability: 2=Irritable/Anxious Goose Flesh Skin: 0=Smooth Skin COWS Score: 17 CIWA Score - CIWA Score Nausea/Vomitin Muscle Tremors: 4-Moderate,w/Arms Extend Anxiety: 4-Mod. Anxious/Guarded Agitation: 3 Paroxysmal Sweats: 3 Orientation: 0-Oriented Tacttile Disturbances: 0-None Auditory Disturbances: 0-None Visual Disturbances: 0-None Headache: 0-None Present CIWA-Ar Total Score: 17 Admission ROS BHS - HPI Chief Complaint: Withdrawal sx. Allergies/Adverse Reactions: Allergies Allergy/AdvReac Type Severity Reaction Status Date / Time No Known Allergies Allergy Verified 10/02/16 13:37 History of Present Illness: 26 y/o man with a long hx. of Heroin & Benzo dependence is admitted for detox. Pt. has been in previous detox, denies significant drug free period. Exam Limitations: No Limitations - Ebola screening Have you traveled outside of the country in the last 21 days: No Have you had contact with anyone from an Ebola affected area: No Have you been sick,other than usual withdrawal symptoms: No Do you have a fever: No - Review of Systems Constitutional: Diaphoresis EENT: reports: Nose Congestion Respiratory: reports: No Symptoms reported Cardiac: reports: No Symptoms Reported GI: reports: Nausea, Abdominal cramping : reports: No Symptoms Reported Musculoskeletal: reports: Back Pain, Joint Pain Integumentary: reports: Sweating Neuro: reports: Seizure (Bemzo withdrawal, last two weeks ago.), Tremors Endocrine: reports: No Symptoms Reported Hematology: reports: No Symptoms Reported Psychiatric: reports: No Sypmtoms Reported Other Systems: Reviewed and Negative Patient History - Patient Medical History Hx Anemia: No Hx Asthma: No Hx Chronic Obstructive Pulmonary Disease (COPD): No Hx Cancer: No Hx Cardiac Disorders: No Hx Congestive Heart Failure: No Hx Hypertension: No Hx Hypercholesterolemia: No Hx Pacemaker: No HX Cerebrovascular Accident: No Hx Seizures: No Hx Dementia: No Hx Diabetes: No Hx Gastrointestinal Disorders: No Hx Liver Disease: No Hx Genitourinary Disorders: No Hx Sexually Transmitted Disorders: No Hx Renal Disease (ESRD): No Hx Thyroid Disease: No Hx Human Immunodeficiency Virus (HIV): No Hx Hepatitis C: Yes (Positive Antibody Test; Negative Viral Load.) Hx Depression: Yes (No treatment in past.) Hx Suicide Attempt: Yes (Cut wrist) Hx Bipolar Disorder: No Hx Schizophrenia: No - Patient Surgical History Past Surgical History: No Hx Neurologic Surgery: No Hx Cataract Extraction: No Hx Cardiac Surgery: No Hx Lung Surgery: No Hx Breast Surgery: No Hx Breast Biopsy: No Hx Abdominal Surgery: No Hx Appendectomy: No Hx Cholecystectomy: No Hx Genitourinary Surgery: No Hx Orthopedic Surgery: No Anesthesia Reaction: No - PPD History Previous Implant?: Yes Documented Results: Negative w/proof Implanted On Prior [facility] Admission?: Yes Date: 10/04/16 Results: 0 mm PPD to be Administered?: No - Smoking Cessation Smoking history: Current every day smoker Have you smoked in the past 12 months: Yes Aproximately how many cigarettes per day: 10 Cigars Per Day: 0 Hx Chewing Tobacco Use: No Initiated information on smoking cessation: Yes 'Breaking Loose' booklet given: 12/06/16 - Substance & Tx. History Hx Alcohol Use: No Hx Substance Use: Yes Substance Use Type: Cocaine, Heroin, Tranquilizers Hx Substance Use Treatment: Yes (09/2016 at [facility]) - Substances Abused Benzodiazepine (Klonopin) Route: Oral Frequency: Daily Amount used: 3mg Age of first use: 17 Date of Last Use: 12/06/16 Heroin Route: Injection Frequency: Daily Amount used: 4-10 bags Age of first use: 15 Date of Last Use: 12/06/16 Cocaine Route: Smoking Frequency: Daily Amount used: 1gm Age of first use: 20 Date of Last Use: 12/06/16 Family Disease History - Family Disease History Family Disease History: CA: Grandparent (Stomach & Lung) Admission Physical Exam BHS - Vital Signs Vital Signs: Vital Signs - 24 hr 12/06/16 15:26 Temperature 96.2 F L Pulse Rate 94 H Respiratory 20 Rate Blood Pressure 129/78 - Physical General Appearance: Yes: Tremorous, Irritable, Sweating, Anxious HEENTM: Yes: Nasal Congestion, Rhinorrhea Respiratory: Yes: Chest Non-Tender, Lungs Clear, Normal Breath Sounds Neck: Yes: Supple Breast: Yes: Breast Exam Deferred Cardiology: Yes: Regular Rhythm, Regular Rate, S1, S2 Abdominal: Yes: Normal Bowel Sounds, Non Tender, Soft Genitourinary: Yes: Within Normal Limits Back: Yes: Within Normal Limits Musculoskeletal: Yes: Within Normal Limits Neurological: Yes: Fully Oriented, Alert Integumentary: Yes: Diaphoresis, Track [place] Lymphatic: Yes: Within Normal Limits - Diagnostic (1) Nicotine dependence Current Visit: Yes Status: Acute Qualifiers: Nicotine product type: cigarettes Substance use status: in withdrawal Qualified Code(s): F17.213 - Nicotine dependence, cigarettes, with withdrawal; F17.213 - Nicotine dependence, cigarettes, with withdrawal (2) Opioid dependence with withdrawal Current Visit: Yes Status: Acute (3) Sedative, hypnotic or anxiolytic dependence with withdrawal, uncomplicated Current Visit: Yes Status: Acute (4) HCV antibody positive Current Visit: Yes Status: Chronic Cleared for Admission [facility] - Detox or Rehab [facility] Level of Care: Medically Managed Detox Regimen/Protocol: Methadone/Valium [facility] Breath Alcohol Content Breath Alcohol Content: 0 Urine Drug Screen - Results Drug Screen Negative: No Urine Drug Screen Results: THC-Marijuana, AAMIR-Cocaine, OPI-Opiates, AMP- Amphetamines, TCA-Tricyclic Antidepress
[2016-12-06] MEDS ORDERED: IBUPROFEN 400 MG TABLET (FP) PO PRN (15:48)
[2016-12-06] MEDS ORDERED: diphenhydrAMINE HCL 50 MG CAPSULE PO PRN (15:48)
[2016-12-06] MEDS ORDERED: MAG HYDROX/AL HYDROX/SIMETH 30 ML UNIT-DOSE CUP PO PRN (15:48)
[2016-12-06] MEDS ORDERED: P-EPHED 60MG/TRIPROLIDI 2.5MG TABLET PO PRN (15:48)
[2016-12-06] MEDS ORDERED: MAGNESIUM CITRATE 300 ML BOTTLE PO PRN (15:48)
[2016-12-06] MEDS ORDERED: MENTHOL/PHENOL 1 EACH UD MM PRN (15:48)
[2016-12-06] MEDS ORDERED: guaiFENesin/D-METHORPHAN HB 10 ML UNIT-DOSE CUPS PO PRN (15:48)
[2016-12-06] MEDS ORDERED: METHADONE HCL 10 MG TABLET (FOR DETOX USE ONLY) PO ONE ×2 (15:48→23:00)
[2016-12-06] MEDS ORDERED: ACETAMINOPHEN 325 MG TABLET (FP) PO PRN (15:48)
[2016-12-06] MEDS ORDERED: MAGNESIUM HYDROX 2400MG/30ML ORAL SUSPENSION 30 ML CUP PO PRN (15:48)
[2016-12-06] MEDS ORDERED: LOPERAMIDE HCL 2 MG CAPSULE PO PRN (15:48)
[2016-12-06] MEDS ORDERED: diazePAM 5 MG TABLET PO ONE (17:00)
[2016-12-06] MEDS ORDERED: METHADONE HCL 10 MG TABLET (FOR DETOX USE ONLY) ONE (19:19)
[2016-12-06 20:17] LABS: URINE APPEARANCE CLEAR; URINE BILIRUBIN NEGATIVE (NEGATIVE); URINE BLOOD NEGATIVE (NEGATIVE); URINE COLOR YELLOW; URINE GLUCOSE (UA) NEGATIVE (NEGATIVE); URINE KETONE NEGATIVE (NEGATIVE); URINE NITRITE NEGATIVE (NEGATIVE); URINE PROTEIN NEGATIVE (NEGATIVE); URINE UROBILINOGEN NEGATIVE mg/dL (0.2-1.0)
[2016-12-06] MEDS ORDERED: THIAMINE HCL 100 MG TABLET (FP) PO SCH (22:00)
[2016-12-06 22:15] LABS: URINE LEUK ESTERASE Negative (NEGATIVE)
[2016-12-06] MEDS: diazePAM 5 MG TABLET PO SCH (22:50)
[2016-12-07] MEDS: diazePAM 5 MG TABLET PO SCH ×2 (05:09→14:37)
--- NOTE | 2016-12-07 08:26 | CONSULT ---
[facility] Psychiatric Consult - Data Date of interview: 12/07/16 Admission source: Self-referred Identifying data: Mr Castle is a 26 years old single male, employed in construction, living with family Substance Abuse History: Reports history of heroin, cocaine and klonopin use. He started using heroin at age 15, klonopin at 17 and crack cocaine at 20, consumes 4-10 bags of heroin, 3 mg of klonopin and one gram of crack cocaine daily. Last smoked crack cocaine and used heroin, klonopin on 12/06/16 Medical History: Significant for arthritis/sciatica. Smokes 10 cigarettes daily Psychiatric History: Reports receiving treatment for ADHD with Adderall since age 12 and treatment for depression/anxiety since [age]. He was tried on Wellbutrin, Zoloft and Abilify and now reports being on Klonopin. Reports seeing Dr Wil Adhikari, a private psychiatrist at [address] [place] [address] and he is currently prescribed Adderall 30 mg po BID and klonopin 1 mg po TID. Reports one previous psychiatric hospitalization at [facility] for evaluation. At present, reports feeling anxious and sleeping poorly Physical/Sexual Abuse/Trauma History: Denies history of verbal, physical or sexual abuse as well as DV relationship Additional Comment: Reports history of 5 previous arrests including 2 felony convictions. report being on probation till December 09, 2016 Mental Status Exam - Mental Status Exam Alert and Oriented to: Time, Place, Person Cognitive Function: Fair Patient Appearance: Well Groomed Mood: Anxious Affect: Appropriate Patient Behavior: Cooperative Speech Pattern: Clear Voice Loudness: Normal Thought Process: Intact, Goal Oriented Thought Disorder: Not Present Hallucinations: Denies Suicidal Ideation: Denies Homicidal Ideation: Denies Insight/Judgement: Poor Sleep: Poorly Appetite: Poor Muscle strength/Tone: Normal Gait/Station: Normal Psychiatric Findings - Problem List ([place] 1, 2,3) (1) ADHD (attention deficit hyperactivity disorder) Current Visit: Yes Status: Acute (2) Anxiety disorder Current Visit: Yes Status: Acute (3) Substance-induced anxiety disorder Current Visit: Yes Status: Acute (4) Substance-induced sleep disorder Current Visit: Yes Status: Acute (5) Opioid dependence with withdrawal Current Visit: Yes Status: Acute (6) Cocaine dependence Current Visit: Yes Status: Acute (7) Sedative, hypnotic or anxiolytic dependence with withdrawal, uncomplicated Current Visit: Yes Status: Acute (8) Nicotine dependence Current Visit: Yes Status: Acute Qualifiers: Nicotine product type: cigarettes Substance use status: in withdrawal Qualified Code(s): F17.213 - Nicotine dependence, cigarettes, with withdrawal; F17.213 - Nicotine dependence, cigarettes, with withdrawal - Initial Treatment Plan Initial Treatment Plan: 1) Start ambien 10 mg po HS prn for insomnia. 2) Continue inpatient detoxification
[2016-12-07] MEDS ORDERED: ZOLPIDEM TARTRATE 10 MG TABLET (PARK CARE ONLY) PO PRN (08:37)
[2016-12-07] MEDS: diazePAM 5 MG TABLET PO PRN ×2 (09:00→13:14)
[2016-12-07] MEDS ORDERED: METHADONE HCL 10 MG TABLET (FOR DETOX USE ONLY) PO SCH (10:00)
[2016-12-07] MEDS ORDERED: PRENATAL VITAMINS W/ FOLIC ACID TABLET (FP) PO SCH (10:00)
[2016-12-07 10:27] LABS: MCH 28.7 pg (25.7-33.7); MCHC 33.6 g/dl (32.0-35.9); MEAN CELL VOLUME 85.4 fl (80-96); MEAN PLT VOLUME 7.8 fl (7.5-11.1); PLATELET COUNT 201 K/MM3 (134-434); RDW 12.6 % (11.9-15.9); WHITE BLOOD COUNT 7.4 K/mm3 (4.0-10.0)
[2016-12-07 10:46] LABS: ALBUMIN 3.8 g/dl (3.4-5.0); ALK PHOS 74 U/L (45-117); ANION GAP 8 (8-16); BILIRUBIN,TOTAL 0.4 mg/dL (0.2-1.0); CALCIUM 8.9 mg/dL (8.5-10.1); CO2 32 mmol/L (21-32); GLUCOSE,RANDOM 80 mg/dL (74-106); SGOT/AST 13 U/L (15-37); SGPT/ALT 26 U/L (12-78); TOT PROT 7.1 g/dl (6.4-8.2)
[2016-12-07] MEDS ORDERED: FLU VACCINE QUAD 60 MCG/0.5 ML (MDV 17-18) IM ONE (12:00)
--- NOTE | 2016-12-07 16:30 | EKG ---
Test Reason : Blood Pressure : / mmHG Vent. Rate : 067 BPM Atrial Rate : 067 BPM P-R Int : 132 ms QRS Dur : 094 ms QT Int : 362 ms P-R-T Axes : 028 082 040 degrees QTc Int : 382 ms NORMAL SINUS RHYTHM ST ELEVATION, CONSIDER EARLY REPOLARIZATION WHEN COMPARED WITH ECG OF 02-OCT-2016 15:47, NO SIGNIFICANT CHANGE WAS FOUND Confirmed by BERKLEY BARRY MD ([id number]) on 12/07/2016 4:30:49 PM Referred By: Confirmed By:BERKLEY BARRY MD
--- NOTE | 2016-12-07 17:30 | PN ---
[facility] CIWA - CIWA Score Nausea/Vomitin-No Nausea/No Vomiting Muscle Tremors: 3 Anxiety: 4-Mod. Anxious/Guarded Agitation: 4-Moderately Restless Paroxysmal Sweats: 3 Orientation: 0-Oriented Tacttile Disturbances: 0-None Auditory Disturbances: 0-None Visual Disturbances: 0-None Headache: 0-None Present CIWA-Ar Total Score: 14 S COWS - Scale Resting Pulse: 0= [place] 80 or Below Sweatin=Flushed/Facial Moisture Restless Observation: 1= Difficult to Sit Still Pupil Size: 0= Normal to Room Light Bone or Joint Aches: 1= Mild Discomfort Runny Nose/ Eye Tearin= Runny Nose/Eyes GI Upset > 30mins: 2= Nausea/Diarrhea Tremor Observation of Outstretched Hands: 2= Slight Tremor Visible Yawning Observation: 1= 1-2x During Session Anxiety or Irritability: 2=Irritable/Anxious Goose Flesh Skin: 0=Smooth Skin COWS Score: 13 S Progress Note (SOAP) Subjective: Nausea,anxiety,tremors,interrupted sleep,restless Objective: 12/07/16 17:29 Vital Signs - 8 hr 12/07/16 13:23 Temperature 96.6 F L Pulse Rate 63 Respiratory 18 Rate Blood Pressure 128/78 Laboratory Tests 12/06/16 12/07/16 12/07/16 19:00 07:40 07:40 WBC 7.4 RBC 5.03 Hgb 14.5 Hct 43.0 MCV 85.4 MCH 28.7 MCHC 33.6 RDW 12.6 Plt Count 201 MPV 7.8 Sodium 140 Potassium 4.4 Chloride 100 Carbon Dioxide 32 Anion Gap 8 BUN 17 Creatinine 1.0 Creat Clearance w eGFR > 60 Random Glucose 80 D Calcium 8.9 Total Bilirubin 0.4 D AST 13 L D ALT 26 D Alkaline Phosphatase 74 D Total Protein 7.1 Albumin 3.8 Urine Color Yellow Urine Appearance Clear Urine pH 5.0 Ur Specific [place] 1.025 Urine Protein Negative Urine Glucose (UA) Negative Urine Ketones Negative Urine Blood Negative Urine Nitrite Negative Urine Bilirubin Negative Urine Urobilinogen Negative Ur Leukocyte Esterase Negative RPR Titer 12/07/16 07:40 WBC RBC Hgb Hct MCV MCH MCHC RDW Plt Count MPV Sodium Potassium Chloride Carbon Dioxide Anion Gap BUN Creatinine Creat Clearance w eGFR Random Glucose Calcium Total Bilirubin AST ALT Alkaline Phosphatase Total Protein Albumin Urine Color Urine Appearance Urine pH Ur Specific [place] Urine Protein Urine Glucose (UA) Urine Ketones Urine Blood Urine Nitrite Urine Bilirubin Urine Urobilinogen Ur Leukocyte Esterase RPR Titer Nonreactive labs noted Assessment: 12/07/16 17:29 Withdrawal sx. Plan: Continue detox
[2016-12-07 17:41] VITALS: BP 137/89; PULSE 68; TEMP 97.5
[2016-12-08] MEDS ORDERED: METHADONE HCL 5 MG TABLET (FOR DETOX USE ONLY) PO SCH (10:00)
[2016-12-08] MEDS ORDERED: diazePAM 5 MG TABLET PO SCH (10:00)
[2016-12-10] MEDS ORDERED: diazePAM 5 MG TABLET PO SCH (10:00)
[2016-12-10] MEDS ORDERED: METHADONE HCL 10 MG TABLET (FOR DETOX USE ONLY) PO SCH (10:00)
[2016-12-11] MEDS ORDERED: METHADONE HCL 5 MG TABLET (FOR DETOX USE ONLY) PO SCH (06:00)
== END 2016-12-07 19:25 | disposition left against medical advice (07) | DRG 770 ==
LOC: YASAS 11:35 → Y3N 16:31 → Y6N 20:07 → Y3N 20:09
PROVIDERS: ADMIT Internal Medicine; ATTEND Internal Medicine
PROC: HZ2ZZZZ Detoxification Services for Substance Abuse Treatment (ICD-10-PCS; principal; 2016-12-06)
DX: F11.23 Opioid dependence with withdrawal (principal); F13.230 Sedative, hypnotic or anxiolytic dependence with withdrawal, uncomplicated; F14.20 Cocaine dependence, uncomplicated; F17.213 Nicotine dependence, cigarettes, with withdrawal; F90.9 Attention-deficit hyperactivity disorder, unspecified type; F41.9 Anxiety disorder, unspecified; F19.280 Other psychoactive substance dependence with psychoactive substance-induced anxiety disorder; B18.2 Chronic viral hepatitis C; Z91.5 Personal history of self-harm
CPT/HCPCS: 36415; 80053; 81003; 85027; 86593; 93005; 93010

== ENCOUNTER 2018-01-24 12:31 | Inpatient (IN) | payer OTHER ==
[2018-01-24 14:02] VITALS: BMI 25.0
--- NOTE | 2018-01-24 14:10 | HP ---
COWS - Scale Resting Pulse: 0= [place] 80 or Below Sweatin= Chills/Flushing Restless Observation: 1= Difficult to Sit Still Pupil Size: 1= Pupils >than Normal Bone or Joint Aches: 2= Severe Diffuse Aches Runny Nose/ Eye Tearin= Runny Nose/Eyes GI Upset > 30mins: 2= Nausea/Diarrhea Tremor Observation: 2= Slight Tremor Visible Yawning Observation: 1= 1-2x During Session Anxiety or Irritability: 2=Irritable/Anxious Goose Flesh Skin: 0=Smooth Skin COWS Score: 14 CIWA Score Nausea/Vomitin Muscle Tremors: 2 Anxiety: 2 Agitation: 2 Paroxysmal Sweats: 2 Orientation: 0-Oriented Tacttile Disturbances: 1-Very Mild Itch/Numbness Auditory Disturbances: 1-Very Mild Visual Disturbances: 0-None Headache: 2-Mild CIWA-Ar Total Score: 14 - Admission Criteria [facility] Guidelines: Admission for Medically Managed Detox: Requires at least one of the followin. CIWA greater than 12 2. Seizures within the past 24 hours 3. Delirium tremens within the past 24 hours 4. Hallucinations within the past 24 hours 5. Acute intervention needed for co occurring medical disorder 6. Acute intervention needed for co occurring psychiatric disorder 7. Severe withdrawal that cannot be handled at a lower level of care (continued vomiting, continued diarrhea, abnormal vital signs) requiring intravenous medication and/or fluids 8. Patient presents the following: CIWA greater than 12 Admission Criteria Met: Admission criteria met Admission ROS S - [facility] Chief Complaint: i need help to stop using heroin,cocaine,xanax Allergies/Adverse Reactions: Allergies Allergy/AdvReac Type Severity Reaction Status Date / Time No Known Allergies Allergy Verified 01/24/18 14:37 History of Present Illness: this 27 years old male with heroin cocaine and xanax dependence,seeking detox, withdrawal symptom,last detox [facility] 12/31/17 seizure last 2015 drug withdrawal on suboxone 8 mgs/2 mg sl film bid last prescription 01/12/18 to 01/17/18 stated no more subboone and did nit want to devorah on anymore on valium prescription 10 mgs po tid last prescriptions filled 01/14/18 nicotine dependence longest period of sobriety 13 months weight loss 20 lbs depression,anxiety,insomnia,adhd 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 Loss EENT: reports: Tearing, Nose Congestion Respiratory: reports: No Symptoms reported Cardiac: reports: No Symptoms Reported GI: reports: Nausea, Poor Appetite, Abdominal cramping : reports: No Symptoms Reported Integumentary: reports: Dryness Neuro: reports: Headache, Tremors Endocrine: reports: No Symptoms Reported Hematology: reports: No Symptoms Reported Psychiatric: reports: No Sypmtoms Reported, Judgement Intact, Mood/Affect Appropiate, Orientated x3, Anxious, Depressed (insomnia,adhd) Patient History - Patient Medical History Hx Anemia: No Hx Asthma: No Hx Chronic Obstructive Pulmonary Disease (COPD): No Hx Cancer: No Hx Cardiac Disorders: No Hx Congestive Heart Failure: No Hx Hypertension: No Hx Hypercholesterolemia: No Hx Pacemaker: No HX Cerebrovascular Accident: No Hx Seizures: Yes (last in 2016 withdrawal) Hx Dementia: No Hx Diabetes: No Hx Gastrointestinal Disorders: No Hx Liver Disease: No Hx Genitourinary Disorders: No Hx Sexually Transmitted Disorders: No Hx Renal Disease (ESRD): No Hx Thyroid Disease: No Hx Human Immunodeficiency Virus (HIV): No (negative) Hx Hepatitis C: Yes (Positive Antibody Test; Negative Viral Load.) Hx Depression: Yes (anxietyminsoninia) Hx Suicide Attempt: No Hx Bipolar Disorder: No Hx Schizophrenia: No Other Medical History: nosuicidal,no homicidal - Patient Surgical History Past Surgical History: No Hx Neurologic Surgery: No Hx Cataract Extraction: No Hx Cardiac Surgery: No Hx Lung Surgery: No Hx Breast Surgery: No Hx Breast Biopsy: No Hx Abdominal Surgery: No Hx Appendectomy: No Hx Cholecystectomy: No Hx Genitourinary Surgery: No Hx Section: No Hx Orthopedic Surgery: No Anesthesia Reaction: No - PPD History Previous Implant?: Yes Date: 10/04/16 Results: 0 mm PPD to be Administered?: Yes - Smoking Cessation Smoking history: Current every day smoker Have you smoked in the past 12 months: Yes Aproximately how many cigarettes per day: 10 Cigars Per Day: 0 Hx Chewing Tobacco Use: No Initiated information on smoking cessation: Yes 'Breaking Loose' booklet given: 01/24/18 - Substance & Tx. History Hx Alcohol Use: No Hx Substance Use: Yes Substance Use Type: Cocaine, Heroin, Tranquilizers Hx Substance Use Treatment: Yes ([facility] 12/31/17) - Substances Abused Heroin Route: Injection Frequency: Daily Amount used: 10 to 20 bags Age of first use: 18 Date of Last Use: 01/24/18 Cocaine Route: Injection Frequency: Daily Amount used: 50 to 100$ Age of first use: 15 Date of Last Use: 01/24/18 Alprazolam (Xanax) Route: Oral Frequency: Daily Amount used: 2 to 6 mgs Age of first use: 17 Date of Last Use: 01/23/18 Family Disease History - Family Disease History Family Disease History: CA: Grandparent (Stomach & Lung) Admission Physical Exam [facility] - Vital Signs Vital Signs: Vital Signs - 24 hr 01/24/18 13:59 Temperature 99.0 F Pulse Rate 74 Respiratory 18 Rate Blood Pressure 134/74 - Physical General Appearance: Yes: Moderate Distress, Tremorous, Irritable, Sweating, Anxious HEENTM: Yes: Normocephalic, HOWARD, Tm's normal Respiratory: Yes: Lungs Clear, Normal Breath Sounds, No Respiratory Distress Neck: Yes: Within Normal Limits Breast: Yes: Within Normal Limits Cardiology: Yes: Regular Rhythm, Regular Rate, S1, S2, Edema Abdominal: Yes: Within Normal Limits, Normal Bowel Sounds, Non Tender, Soft Genitourinary: Yes: Within Normal Limits Back: Yes: Within Normal Limits, Normal Inspection, Muscle Spasm Musculoskeletal: Yes: Back pain, Joint Stiffness, Muscle Pain Extremities: Yes: Within Normal Limits, Tremors Neurological: Yes: publications sales representative II-XII NML intact, Fully Oriented, Alert, Motor Strength 5/5 Integumentary: Yes: Dry, Track [place] Lymphatic: Yes: Within Normal Limits - Diagnostic (1) Opioid dependence with withdrawal Current Visit: No Status: Chronic (2) ADHD (attention deficit hyperactivity disorder) Current Visit: No Status: Acute (3) Cocaine dependence Current Visit: No Status: Acute (4) Insomnia Current Visit: No Status: Acute (5) HCV antibody positive Current Visit: No Status: Chronic (6) Nicotine dependence Current Visit: No Status: Chronic Qualifiers: Nicotine product type: cigarettes Substance use status: uncomplicated Qualified Code(s): F17.210 - Nicotine dependence, cigarettes, uncomplicated (7) Sedative, hypnotic or anxiolytic dependence with withdrawal, uncomplicated Current Visit: No Status: Chronic (8) Anxiety and depression Current Visit: Yes Status: Acute (9) Weight loss Current Visit: Yes Status: Acute Cleared for Admission [facility] - Detox or Rehab [facility] Level of Care: Medically Managed Detox Regimen/Protocol: Methadone [facility] Breath Alcohol Content Breath Alcohol Content: 0 Urine Drug Screen - Results Drug Screen Negative: No Urine Drug Screen Results: AAMIR-Cocaine, OPI-Opiates, BZO-Benzodiazepines, FEN- Fentanyl
[2018-01-24] MEDS ORDERED: guaiFENesin/D-METHORPHAN HB 10 ML UNIT-DOSE CUPS PO PRN (14:35)
[2018-01-24] MEDS ORDERED: LOPERAMIDE HCL 2 MG CAPSULE PO PRN (14:35)
[2018-01-24] MEDS ORDERED: MENTHOL/PHENOL 1 EACH UD MM PRN (14:35)
[2018-01-24] MEDS ORDERED: MAGNESIUM CITRATE 300 ML BOTTLE PO PRN (14:35)
[2018-01-24] MEDS ORDERED: MAGNESIUM HYDROX 2400MG/30ML ORAL SUSPENSION 30 ML CUP PO PRN (14:35)
[2018-01-24] MEDS ORDERED: IBUPROFEN 400 MG TABLET (FP) PO PRN (14:35)
[2018-01-24] MEDS ORDERED: MAG HYDROX/AL HYDROX/SIMETH 30 ML UNIT-DOSE CUP PO PRN (14:35)
[2018-01-24] MEDS ORDERED: P-EPHED 60MG/TRIPROLIDI 2.5MG TABLET PO PRN (14:35)
[2018-01-24] MEDS ORDERED: ACETAMINOPHEN 325 MG TABLET (FP) PO PRN (14:35)
[2018-01-24] MEDS ORDERED: NICOTINE POLACRILEX 2 MG GUM BC PRN (14:35)
[2018-01-24] MEDS ORDERED: METHADONE HCL 10 MG TABLET (FOR DETOX USE ONLY) PO ONE ×2 (15:15→23:00)
[2018-01-24] MEDS: diazePAM 5 MG TABLET PO PRN ×2 (15:27→22:21)
[2018-01-24 21:18] LABS: URINE APPEARANCE CLEAR; URINE BILIRUBIN NEGATIVE (<2.0 mg/dL); URINE COLOR YELLOW; URINE GLUCOSE (UA) NEGATIVE (NEGATIVE); URINE KETONE NEGATIVE (NEGATIVE); URINE LEUK ESTERASE NEGATIVE (NEGATIVE); URINE NITRITE NEGATIVE (NEGATIVE); URINE PROTEIN NEGATIVE (NEGATIVE); URINE UROBILINOGEN NEGATIVE mg/dL (0.2-1.0)
[2018-01-24] MEDS ORDERED: MELATONIN 5 MG TABLETS PO PRN (22:00)
[2018-01-24] MEDS: THIAMINE HCL 100 MG TABLET (FP) PO SCH (22:21)
[2018-01-24] MEDS: cloNIDine HCL 0.1 MG TABLET PO SCH (22:21)
[2018-01-24] MEDS: CYCLOBENZAPRINE HCL 10 MG TABLET (FP) PO PRN (22:21)
[2018-01-24] MEDS: NICOTINE 21 MG/24 HOURS TOPICAL PATCH TD SCH (22:34)
[2018-01-25] MEDS: diazePAM 5 MG TABLET PO PRN ×4 (06:13→22:20)
--- NOTE | 2018-01-25 07:34 | CONSULT ---
[facility] Psychiatric Consult - Data Date of interview: 01/25/18 Admission source: [facility] Identifying data: This is a 27 years old male, single, living with family, unemployed, withy no psychiatric hospitalization history, with no income, with heroin cocaine, nicotine and xanax dependence,seeking detox, reporting withdrawal symptoms with a history of last detox at [facility] on 12/31/17 Substance Abuse History: Smoking Cessation. Smoking history: Current every day smoker. Have you smoked in the past 12 months: Yes. Aproximately how many cigarettes per day: 10. Cigars Per Day: 0. Hx Chewing Tobacco Use: No. Initiated information on smoking cessation: Yes. 'Breaking Loose' booklet given : 01/24/18. - Substance & Tx. History. Hx Alcohol Use: No. Hx Substance Use: Yes. Substance Use Type: Cocaine, Heroin, Tranquilizers. Hx Substance Use Treatment: Yes ([facility] 12/31/17). - Substances Abused. Heroin. Route: Injection. Frequency: Daily. Amount used: 10 to 20 bags. Age of first use: 18. Date of Last Use: 01/24/18. Cocaine. Route: Injection. Frequency : Daily. Amount used: 50 to 100$. Age of first use: 15. Date of Last Use: . Alprazolam (Xanax). Route: Oral. Frequency: Daily. Amount used: 2 to 6 mgs. Age of first use: 17. Date of Last Use: 01/23/18 Medical History: Weight loss, ADHD, Seizure history Psychiatric History: Patient reports no psychiatric hospitalization history, reports ADHD history, reports anxiety and deporession history, denies suicidal, homicidal history, reports no medications taking prior to admission. Physical/Sexual Abuse/Trauma History: Denies Additional Comment: Observation. Detox Unit Care Protocol Mental Status Exam - Mental Status Exam Alert and Oriented to: Person Cognitive Function: Fair Patient Appearance: Unkempt Mood: Sad Affect: Flat Patient Behavior: Sedated Speech Pattern: Delayed Voice Loudness: Mildly Soft/Quiet Thought Process: Circumstantial, Goal Oriented Thought Disorder: Being Controlled Hallucinations: Denies Suicidal Ideation: Denies Homicidal Ideation: Denies Insight/Judgement: Fair Sleep: Difficulty falling asleep Appetite: Weight loss Muscle strength/Tone: Mild Hypertonicity Gait/Station: Normal Additional Comments: Observation. Detox Unit Care Protocol Psychiatric Findings - Problem List ([place] 1, 2,3) (1) Weight loss Current Visit: Yes Status: Acute (2) ADHD (attention deficit hyperactivity disorder) Current Visit: No Status: Acute (3) Cocaine dependence Current Visit: No Status: Acute (4) Substance induced mood disorder Current Visit: No Status: Acute (5) Substance-induced anxiety disorder Current Visit: No Status: Acute (6) Substance-induced sleep disorder Current Visit: No Status: Acute (7) Nicotine dependence Current Visit: No Status: Chronic Qualifiers: Nicotine product type: cigarettes Substance use status: uncomplicated Qualified Code(s): F17.210 - Nicotine dependence, cigarettes, uncomplicated (8) Opioid dependence with withdrawal Current Visit: No Status: Chronic (9) Sedative, hypnotic or anxiolytic dependence with withdrawal, uncomplicated Current Visit: No Status: Chronic - Initial Treatment Plan Initial Treatment Plan: Observation. Detox Unit Care Protocol
[2018-01-25] MEDS ORDERED: METHADONE HCL 10 MG TABLET (FOR DETOX USE ONLY) PO ONE (10:00)
[2018-01-25] MEDS: NICOTINE 21 MG/24 HOURS TOPICAL PATCH TD SCH (10:28)
[2018-01-25] MEDS: PRENATAL VITAMINS W/ FOLIC ACID TABLET (FP) PO SCH (10:28)
[2018-01-25] MEDS: cloNIDine HCL 0.1 MG TABLET PO SCH ×2 (10:28→23:26)
[2018-01-25 10:30] LABS: HEMATOCRIT 41.8 % (35.4-49); HEMOGLOBIN 13.9 GM/dL (11.7-16.9); MCH 28.5 pg (25.7-33.7); MCHC 33.2 g/dl (32.0-35.9); MEAN CELL VOLUME 85.9 fl (80-96); MEAN PLT VOLUME 8.4 fl (7.5-11.1); PLATELET COUNT 178 K/MM3 (134-434); RBC 4.87 M/mm3 (4.00-5.60); RDW 12.9 % (11.9-15.9); WHITE BLOOD COUNT 6.5 K/mm3 (4.0-10.0)
[2018-01-25 11:13] LABS: ALK PHOS 83 U/L (45-117); ANION GAP 8 MMOL/L (8-16); BILIRUBIN,TOTAL 0.3 mg/dL (0.2-1); BLOOD UREA NITROGEN 14 mg/dL (7-18); CALCIUM 8.1 mg/dL (8.5-10.1); CHLORIDE 106 mmol/L (98-107); CO2 26 mmol/L (21-32); CREATININE 0.9 mg/dL (0.55-1.3); GLUCOSE,RANDOM 93 mg/dL (74-106); POTASSIUM 4.2 mmol/L (3.5-5.1); SGOT/AST 22 U/L (15-37); SGPT/ALT 35 U/L (13-61); SODIUM 141 mmol/L (136-145)
--- NOTE | 2018-01-25 11:20 | PN ---
[facility] CIWA - CIWA Score Nausea/Vomitin-Mild Nausea/No Vomiting Muscle Tremors: 4-Moderate,w/Arms Extend Anxiety: 3 Agitation: 4-Moderately Restless Paroxysmal Sweats: 3 Orientation: 0-Oriented Tacttile Disturbances: 0-None Auditory Disturbances: 0-None Visual Disturbances: 0-None Headache: 0-None Present CIWA-Ar Total Score: 15 S COWS - Scale Resting Pulse: 0= [place] 80 or Below Sweatin=Flushed/Facial Moisture Restless Observation: 1= Difficult to Sit Still Pupil Size: 0= Normal to Room Light Bone or Joint Aches: 2= Severe Diffuse Aches Runny Nose/ Eye Tearin= Nasal Congestion GI Upset > 30mins: 0= None Tremor Observation of Outstretched Hands: 2= Slight Tremor Visible Yawning Observation: 1= 1-2x During Session Anxiety or Irritability: 2=Irritable/Anxious Goose Flesh Skin: 0=Smooth Skin COWS Score: 11 [facility] Progress Note (SOAP) Subjective: shakes sweats chills body aches interrupted sleep agitation nausea Objective: 01/25/18 11:19 Vital Signs Temperature 98.4 F 01/25/18 09:13 Pulse Rate 60 01/25/18 09:13 Respiratory Rate 18 01/25/18 09:13 Blood Pressure 121/54 L 01/25/18 09:13 O2 Sat by Pulse Oximetry (%) Laboratory Tests 01/24/18 01/25/18 01/25/18 19:00 07:00 07:00 WBC 6.5 RBC 4.87 Hgb 13.9 Hct 41.8 MCV 85.9 MCH 28.5 MCHC 33.2 RDW 12.9 Plt Count 178 D MPV 8.4 Sodium 141 Potassium 4.2 Chloride 106 Carbon Dioxide 26 Anion Gap 8 BUN 14 Creatinine 0.9 Creat Clearance w eGFR > 60 Random Glucose 93 Calcium 8.1 L Total Bilirubin 0.3 AST 22 ALT 35 Alkaline Phosphatase 83 Total Protein 6.0 L Albumin 3.0 L Urine Color Yellow Urine Appearance Clear Urine pH 7.0 Ur Specific [place] 1.015 Urine Protein Negative Urine Glucose (UA) Negative Urine Ketones Negative Urine Blood Negative Urine Nitrite Negative Urine Bilirubin Negative Urine Urobilinogen Negative Ur Leukocyte Esterase Negative aaox3 ambulating no acute distress Assessment: 01/25/18 11:20 withdrawal sx Plan: continue detox increase fluids
[2018-01-25] MEDS: THIAMINE HCL 100 MG TABLET (FP) PO SCH (22:19)
[2018-01-26] MEDS: diazePAM 5 MG TABLET PO PRN ×3 (08:00→19:56)
[2018-01-26] MEDS ORDERED: METHADONE HCL 5 MG TABLET (FOR DETOX USE ONLY) PO ONE (10:00)
[2018-01-26] MEDS: PRENATAL VITAMINS W/ FOLIC ACID TABLET (FP) PO SCH (10:15)
[2018-01-26] MEDS: NICOTINE 21 MG/24 HOURS TOPICAL PATCH TD SCH (10:16)
[2018-01-26] MEDS: cloNIDine HCL 0.1 MG TABLET PO SCH ×2 (10:16→22:44)
--- NOTE | 2018-01-26 11:17 | PN ---
[facility] CIWA - CIWA Score Nausea/Vomitin-No Nausea/No Vomiting Muscle Tremors: 3 Anxiety: 3 Agitation: 4-Moderately Restless Paroxysmal Sweats: 2 Orientation: 0-Oriented Tacttile Disturbances: 0-None Auditory Disturbances: 0-None Visual Disturbances: 0-None Headache: 0-None Present CIWA-Ar Total Score: 12 [facility] COWS - Scale Resting Pulse: 0= [place] 80 or Below Sweatin= Chills/Flushing Restless Observation: 1= Difficult to Sit Still Pupil Size: 0= Normal to Room Light Bone or Joint Aches: 2= Severe Diffuse Aches Runny Nose/ Eye Tearin= Nasal Congestion GI Upset > 30mins: 0= None Tremor Observation of Outstretched Hands: 1= Tremor [place], Not Seen Yawning Observation: 2= >3x During Session Anxiety or Irritability: 2=Irritable/Anxious Goose Flesh Skin: 0=Smooth Skin COWS Score: 10 S Progress Note (SOAP) Subjective: anxiety interrupted sleep body aches sweats irritable i need something for sleep beside melatonin Objective: 01/26/18 11:14 Vital Signs Temperature 98.2 F 01/26/18 09:33 Pulse Rate 66 01/26/18 09:33 Respiratory Rate 18 01/26/18 09:33 Blood Pressure 114/65 01/26/18 09:33 O2 Sat by Pulse Oximetry (%) Laboratory Tests 01/24/18 01/25/18 01/25/18 19:00 07:00 07:00 WBC 6.5 RBC 4.87 Hgb 13.9 Hct 41.8 MCV 85.9 MCH 28.5 MCHC 33.2 RDW 12.9 Plt Count 178 D MPV 8.4 Sodium 141 Potassium 4.2 Chloride 106 Carbon Dioxide 26 Anion Gap 8 BUN 14 Creatinine 0.9 Creat Clearance w eGFR > 60 Random Glucose 93 Calcium 8.1 L Total Bilirubin 0.3 AST 22 ALT 35 Alkaline Phosphatase 83 Total Protein 6.0 L Albumin 3.0 L Urine Color Yellow Urine Appearance Clear Urine pH 7.0 Ur Specific [place] 1.015 Urine Protein Negative Urine Glucose (UA) Negative Urine Ketones Negative Urine Blood Negative Urine Nitrite Negative Urine Bilirubin Negative Urine Urobilinogen Negative Ur Leukocyte Esterase Negative RPR Titer 01/25/18 07:00 WBC RBC Hgb Hct MCV MCH MCHC RDW Plt Count MPV Sodium Potassium Chloride Carbon Dioxide Anion Gap BUN Creatinine Creat Clearance w eGFR Random Glucose Calcium Total Bilirubin AST ALT Alkaline Phosphatase Total Protein Albumin Urine Color Urine Appearance Urine pH Ur Specific [place] Urine Protein Urine Glucose (UA) Urine Ketones Urine Blood Urine Nitrite Urine Bilirubin Urine Urobilinogen Ur Leukocyte Esterase RPR Titer Nonreactive aaox3 ambulating no acute distress Assessment: 01/26/18 11:16 withdrawal sx Plan: continue detox increase fluids trazadone 50mg qhs ordered
[2018-01-26] MEDS: CYCLOBENZAPRINE HCL 10 MG TABLET (FP) PO PRN ×2 (12:37→22:44)
[2018-01-26] MEDS: THIAMINE HCL 100 MG TABLET (FP) PO SCH (22:44)
[2018-01-26] MEDS: traZODone HCL 50 MG TABLET (FP) PO SCH (22:44)
[2018-01-27] MEDS ORDERED: METHADONE HCL 5 MG TABLET (FOR DETOX USE ONLY) PO ONE (10:00)
--- NOTE | 2018-01-27 10:01 | PN ---
[facility] Progress Note (SOAP) Subjective: feeling better little sweats sleeping better Objective: 01/27/18 10:01 Vital Signs Temperature 98.2 F 01/27/18 09:17 Pulse Rate 80 01/27/18 09:17 Respiratory Rate 18 01/27/18 09:17 Blood Pressure 123/76 01/27/18 09:17 O2 Sat by Pulse Oximetry (%) aaox3 ambulating no acute distress Assessment: 01/27/18 10:01 mild withdrawal sx Plan: continue detox increase fluids
[2018-01-27] MEDS: PRENATAL VITAMINS W/ FOLIC ACID TABLET (FP) PO SCH (10:04)
[2018-01-27] MEDS: cloNIDine HCL 0.1 MG TABLET PO SCH ×2 (10:04→22:08)
[2018-01-27] MEDS: NICOTINE 21 MG/24 HOURS TOPICAL PATCH TD SCH (10:05)
[2018-01-27] MEDS: diazePAM 5 MG TABLET PO PRN ×2 (10:06→14:18)
[2018-01-27] MEDS: traZODone HCL 50 MG TABLET (FP) PO SCH (22:08)
[2018-01-27] MEDS: CYCLOBENZAPRINE HCL 10 MG TABLET (FP) PO PRN (22:08)
[2018-01-27] MEDS: THIAMINE HCL 100 MG TABLET (FP) PO SCH (22:08)
[2018-01-28 07:09] VITALS: BP 136/65; PULSE 50; TEMP 97.7
--- NOTE | 2018-01-28 08:52 | DS ---
[facility] Detox Discharge Summary Admission Date: 01/24/18 Discharge Date: 01/28/18 - History Present History: Cocaine Dependence, Opioid Dependence, Sedative Dependence - Physical Exam Results Vital Signs: Vital Signs Temperature 97.7 F 01/28/18 07:08 Pulse Rate 50 L 01/28/18 07:08 Respiratory Rate 17 01/28/18 07:08 Blood Pressure 136/65 01/28/18 07:08 O2 Sat by Pulse Oximetry (%) - Treatment Hospital Course: Detox Protocol Followed, Detoxed Safely, Responded well, Discharged Condition Good, Rehab Referral Accepted - Medication Discharge Medications: Ambulatory Orders NK [No Known Home Medication] 01/24/18 - Diagnosis (1) Anxiety and depression Current Visit: Yes Status: Acute (2) IVDU (intravenous drug user) Current Visit: Yes Status: Chronic (3) Weight loss Current Visit: Yes Status: Acute (4) ADHD (attention deficit hyperactivity disorder) Current Visit: No Status: Acute (5) Anxiety disorder Current Visit: No Status: Acute (6) Cocaine dependence Current Visit: Yes Status: Chronic Qualifiers: Substance use status: uncomplicated Qualified Code(s): F14.20 - Cocaine dependence, uncomplicated (7) Insomnia Current Visit: No Status: Acute (8) Substance induced mood disorder Current Visit: No Status: Acute (9) Substance-induced anxiety disorder Current Visit: No Status: Acute (10) Substance-induced sleep disorder Current Visit: No Status: Acute (11) HCV antibody positive Current Visit: Yes Status: Chronic (12) Nicotine dependence Current Visit: Yes Status: Chronic Qualifiers: Nicotine product type: cigarettes Substance use status: uncomplicated Qualified Code(s): F17.210 - Nicotine dependence, cigarettes, uncomplicated (13) Opioid dependence with withdrawal Current Visit: Yes Status: Chronic (14) Sedative, hypnotic or anxiolytic dependence with withdrawal, uncomplicated Current Visit: Yes Status: Chronic - AMA Did Patient Leave Against Medical Advice: No (referred to [facility])
[2018-01-28] MEDS ORDERED: METHADONE HCL 10 MG TABLET (FOR DETOX USE ONLY) PO ONE ×2 (09:00→10:00)
[2018-01-28] MEDS: PRENATAL VITAMINS W/ FOLIC ACID TABLET (FP) PO SCH (09:11)
[2018-01-28] MEDS: cloNIDine HCL 0.1 MG TABLET PO SCH (09:12)
[2018-01-28] MEDS: NICOTINE 21 MG/24 HOURS TOPICAL PATCH TD SCH (09:12)
[2018-01-29] MEDS ORDERED: METHADONE HCL 5 MG TABLET (FOR DETOX USE ONLY) PO ONE (06:00)
== END 2018-01-28 09:18 | disposition home or self-care (01) | DRG 773 ==
LOC: YASAS 12:31 → Y6N 14:59
PROVIDERS: ADMIT Neuromusculoskeletal Medicine & OMM; ATTEND Neuromusculoskeletal Medicine & OMM
PROC: HZ2ZZZZ Detoxification Services for Substance Abuse Treatment (ICD-10-PCS; principal; 2018-01-24)
DX: F11.23 Opioid dependence with withdrawal (principal); F13.230 Sedative, hypnotic or anxiolytic dependence with withdrawal, uncomplicated; F14.20 Cocaine dependence, uncomplicated; F17.210 Nicotine dependence, cigarettes, uncomplicated; F19.24 Other psychoactive substance dependence with psychoactive substance-induced mood disorder; F19.282 Other psychoactive substance dependence with psychoactive substance-induced sleep disorder; F19.280 Other psychoactive substance dependence with psychoactive substance-induced anxiety disorder; F41.9 Anxiety disorder, unspecified; F32.9 Major depressive disorder, single episode, unspecified; F90.9 Attention-deficit hyperactivity disorder, unspecified type; B18.2 Chronic viral hepatitis C; G47.00 Insomnia, unspecified; R63.4 Abnormal weight loss; Z68.25 Body mass index [BMI] 25.0-25.9, adult; Z86.69 Personal history of other diseases of the nervous system and sense organs
CPT/HCPCS: 36415; 80053; 81003; 85027; 86593; J0735

== ENCOUNTER 2018-09-17 10:23 | Inpatient (IN) | payer OTHER ==
[2018-09-17 12:05] VITALS: BMI 26.3
--- NOTE | 2018-09-17 14:03 | HP ---
COWS - Scale Resting Pulse: 0= [place] 80 or Below Sweatin= Chills/Flushing Restless Observation: 0= Sits Still Pupil Size: 0= Normal to Room Light Bone or Joint Aches: 2= Severe Diffuse Aches Runny Nose/ Eye Tearin= Nasal Congestion GI Upset > 30mins: 2= Nausea/Diarrhea Tremor Observation: 2= Slight Tremor Visible Yawning Observation: 1= 1-2x During Session Anxiety or Irritability: 2=Irritable/Anxious Goose Flesh Skin: 0=Smooth Skin COWS Score: 11 CIWA Score Nausea/Vomitin-Mild Nausea/No Vomiting Muscle Tremors: 3 Anxiety: 3 Agitation: 1-Slight > Activity Paroxysmal Sweats: 2 Orientation: 0-Oriented Tacttile Disturbances: 0-None Auditory Disturbances: 0-None Visual Disturbances: 0-None Headache: 2-Mild CIWA-Ar Total Score: 12 - Admission Criteria [facility]ASAS Guidelines: Admission for Medically Managed Detox: Requires at least one of the followin. CIWA greater than 12 2. Seizures within the past 24 hours 3. Delirium tremens within the past 24 hours 4. Hallucinations within the past 24 hours 5. Acute intervention needed for co occurring medical disorder 6. Acute intervention needed for co occurring psychiatric disorder 7. Severe withdrawal that cannot be handled at a lower level of care (continued vomiting, continued diarrhea, abnormal vital signs) requiring intravenous medication and/or fluids 8. Admission ROS [facility] Chief Complaint: seeking help for heroin, alcohol, and benzo use Allergies/Adverse Reactions: Allergies Allergy/AdvReac Type Severity Reaction Status Date / Time No Known Allergies Allergy Verified 09/17/18 11:51 History of Present Illness: 28 y/o/m here for alcohol, heroin, and benzo use. He was last here in December of 2017 for detox and then went to [facility] for rehab and has been living in [place] at a group home house. He was drug free until about 3 weeks ago when he starts to use again. He has been drinking a pint a liquor a day. He normally starts to drink in the afternoon and if does not drink he starts to get hot flashes, gets anxious, and gets the shakes. Last drink was this morning. He has had one seizure in the past, related to xanax. He has a history of blackouts. He has been using a gram of heroin daily which he uses IV, last use last night. He denies any history of endocarditis, abscesses, or HIV. He has had a positive HEP C antibody test with a negative viral load. He has been buying Klonopin off the streets for the last 2 weeks and has been using 2-6mg a day, last use yesterday. He has been using a gram of cocaine once a week, he uses by smoking, last use 4 days ago. He smoked crystal meth once last Thursday and denies any use since. He smokes Marijuana a few times a week. He smokes half a pack of cigarettes daily. He is living with family right now and is currently unemployed. PMHx of anxiety, degenerative disc disease, arthritis. He denies any SHx. He wears a back brace for chronic back pain. He has overdosed 5 times in the past, most recent overdose 3 weeks ago. He was given Narcan by a friend and taken to a hospital in the city. - Ebola screening Have you traveled outside of the country in the last 21 days: No Have you had contact with anyone from an Ebola affected area: No Do you have a fever: No - Review of Systems Constitutional: Chills, Loss of Appetite EENT: reports: No Symptoms Reported Respiratory: reports: No Symptoms reported Cardiac: reports: No Symptoms Reported GI: reports: Diarrhea, Abdominal cramping Musculoskeletal: reports: Back Pain (chronic) Integumentary: reports: No Symptoms Reported Neuro: reports: Tremors Endocrine: reports: No Symptoms Reported Hematology: reports: No Symptoms Reported Psychiatric: reports: Agitated, Anxious Other Systems: Reviewed and Negative Patient History - Patient Medical History Hx Anemia: No Hx Asthma: No Hx Chronic Obstructive Pulmonary Disease (COPD): No Hx Cancer: No Hx Cardiac Disorders: No Hx Congestive Heart Failure: No Hx Hypertension: No Hx Hypercholesterolemia: No Hx Pacemaker: No HX Cerebrovascular Accident: No Hx Seizures: Yes (last in 2016 withdrawal) Hx Dementia: No Hx Diabetes: No Hx Gastrointestinal Disorders: No Hx Liver Disease: No Hx Genitourinary Disorders: No Hx Sexually Transmitted Disorders: No Hx Renal Disease (ESRD): No Hx Thyroid Disease: No Hx Human Immunodeficiency Virus (HIV): No (negative) Hx Hepatitis C: Yes (Positive Antibody Test; Negative Viral Load.) Hx Depression: Yes (anxiety insoninia) Hx Suicide Attempt: No Hx Bipolar Disorder: No Hx Schizophrenia: No Other Medical History: no suicidal or homicidal ideations - Patient Surgical History Past Surgical History: No Hx Neurologic Surgery: No Hx Cataract Extraction: No Hx Cardiac Surgery: No Hx Lung Surgery: No Hx Breast Surgery: No Hx Breast Biopsy: No Hx Abdominal Surgery: No Hx Appendectomy: No Hx Cholecystectomy: No Hx Genitourinary Surgery: No Hx Section: No Hx Orthopedic Surgery: No Anesthesia Reaction: No - PPD History Previous Implant?: Yes Documented Results: Negative w/o proof Implanted On Prior [facility] Admission?: Yes Date: 01/26/18 Results: 0 mm PPD to be Administered?: No - Smoking Cessation Smoking history: Current every day smoker Have you smoked in the past 12 months: Yes Aproximately how many cigarettes per day: 10 Cigars Per Day: 0 Hx Chewing Tobacco Use: No Initiated information on smoking cessation: Yes 'Breaking Loose' booklet given: 09/17/18 - Substance & Tx. History Hx Alcohol Use: Yes Hx Substance Use: Yes Substance Use Type: Alcohol, Cocaine, Heroin, Marijuana - Substances abused Alcohol Substance route: Oral Frequency: Daily Amount used: 1 pint vodka, 3 beers Age of first use: 12 Date of last use: 09/17/18 Heroin Substance route: Injection Frequency: Daily Amount used: 1gram Age of first use: 16 Date of last use: 09/17/18 Benzodiazepine (Klonopin) Substance route: Oral Frequency: Daily Amount used: 3-5 2mg Age of first use: 19 Date of last use: 09/16/18 Family Disease History - Family Disease History Family Disease History: CA: Grandparent (Stomach & Lung) Admission Physical Exam S - Vital Signs Vital Signs: Vital Signs - 24 hr 09/17/18 09/17/18 11:50 12:55 Temperature 97.1 F L 97.1 F L Pulse Rate 69 69 Respiratory 18 18 Rate Blood Pressure 101/61 101/61 - Physical General Appearance: Yes: No Apparent Distress HEENTM: Yes: EOMI, Normocephalic Respiratory: Yes: Chest Non-Tender, Normal Breath Sounds, No Accessory Muscle Use Neck: Yes: Supple Cardiology: Yes: Regular Rhythm, Regular Rate, S1, S2 Abdominal: Yes: Normal Bowel Sounds, Non Tender, Soft Extremities: Yes: Normal Capillary Refill, Tremors. No: Swelling Neurological: Yes: ore digger II-XII NML intact, Fully Oriented, Alert, Motor Strength 5/5 Integumentary: Yes: Dry, Track [place] (bilateral anticubital fossas. No abscesses. No erythema, warmth, or swelling.) - Diagnostic (1) Alcohol use disorder Current Visit: Yes Status: Acute (2) Opioid use disorder Current Visit: Yes Status: Acute (3) Cocaine use disorder Current Visit: Yes Status: Acute (4) Nicotine use disorder Current Visit: Yes Status: Acute (5) Methamphetamine abuse Current Visit: Yes Status: Acute (6) IVDU (intravenous drug user) Current Visit: No Status: Chronic Cleared for Admission S - Detox or Rehab [facility] Level of Care: Medically Supervised 2Day Detox Regimen/Protocol: Methadone/Librium Breathalyzer - Breathalyzer Breathalyzer: 0.017 Urine Drug Screen - Test Device Lot number: [id number] Expiration date: 06/29/20 - Control Is test valid?: Yes - Results Drug screen NEGATIVE: No Urine drug screen results: THC-Marijuana, AAMIR-Cocaine, MET-Methamphetamine, AMP- Amphetamines, FEN-Fentanyl, MOP-Opiates, OXY-Oxycodone Inpatient Rehab Admission - Rehab Decision to Admit Inpatient rehab admission?: No
--- NOTE | 2018-09-17 14:28 | PN ---
Teaching Attending Note Name of Resident: Ashley Ibrahim ATTENDING PHYSICIAN STATEMENT I saw and evaluated the patient. I reviewed the resident's note and discussed the case with the resident. I agree with the resident's findings and plan as documented. SUBJECTIVE: This report was requested by: Kaela Iniguez | Reference #: [id number] Others' Prescriptions Patient Name: Elías Castle Date: 1990 Address: [address] [place] [id number] Sex: Male Rx Written Rx Dispensed Drug Quantity Days Supply Prescriber Name 04/20/2018 04/21/2018 suboxone 2 mg-0.5 mg sl film 7 7 Duarte Eastman MD 04/12/2018 04/13/2018 suboxone 4 mg-1 mg sl film 30 30 Duarte Eastman MD Patient Name: Elías Castle Date: 1990 Address: [address] [place] [id number] Sex: Male Rx Written Rx Dispensed Drug Quantity Days Supply Prescriber Name 04/02/2018 04/04/2018 suboxone 4 mg-1 mg sl film 7 7 Abellard, Gurwinder 03/26/2018 03/30/2018 suboxone 2 mg-0.5 mg sl film 10 5 Blake Holden MD 12/07/2017 12/10/2017 suboxone 8 mg-2 mg sl film 10 5 AbellarGurwinder avitia 12/05/2017 12/06/2017 suboxone 8 mg-2 mg sl film 6 3 Abellard, Gurwinder 10/22/2017 10/22/2017 dextroamp-amphetamin 20 mg tab 30 30 Jaz Adhikari MD 10/22/2017 10/22/2017 diazepam 10 mg tablet 90 30 PaolodaJaz joiner MD 10/22/2017 10/22/2017 suboxone 8 mg-2 mg sl film 30 30 AbellardGurwinder 10/15/2017 10/15/2017 suboxone 8 mg-2 mg sl film 14 7 Abellard, Gurwinder 10/08/2017 10/09/2017 suboxone 8 mg-2 mg sl film 14 7 Abellard, Gurwinder 10/01/2017 10/03/2017 suboxone 8 mg-2 mg sl film 14 7 Abellard, Gurwinder 09/26/2017 09/28/2017 suboxone 8 mg-2 mg sl film 14 7 Gurwinder Gunn Patient Name: Elías Castle Date: 1990 Address: [address] [place] [address] Sex: Male Rx Written Rx Dispensed Drug Quantity Days Supply Prescriber Name 03/03/2018 03/03/2018 dextroamp-amphetamin 30 mg tab 60 30 Rexdale, Jaz Miranda MD 03/03/2018 03/03/2018 dextroamp-amphetamin 20 mg tab 30 30 Rexdale, Jaz Miranda MD 03/03/2018 03/03/2018 diazepam 10 mg tablet 90 30 Rexdale, Jaz Miranda MD 01/14/2018 01/14/2018 diazepam 10 mg tablet 60 30 Rexdale, Jaz Miranda MD 01/14/2018 01/14/2018 dextroamp-amphetamin 20 mg tab 30 30 Rexdale, Jaz Miranda MD 01/14/2018 01/14/2018 dextroamp-amphetamin 30 mg tab 60 30 Rexdale, Jaz Miranda MD 12/17/2017 12/17/2017 dextroamp-amphetamin 30 mg tab 60 30 Rexdale, Jaz Miranda MD 12/17/2017 12/17/2017 diazepam 10 mg tablet 60 30 Rexdale, Jaz Miranda MD 12/17/2017 12/17/2017 dextroamp-amphetamin 20 mg tab 30 30 Rexdale, Jaz Miranda MD 11/05/2017 11/05/2017 methadone hcl 10 mg tablet 12 4 Pean, Arcenio J Patient Name: Elías Castle Date: 1990 Address: [address] [place] [id number] Sex: Male Rx Written Rx Dispensed Drug Quantity Days Supply Prescriber Name 01/12/2018 01/12/2018 suboxone 8 mg-2 mg sl film 10 5 Ann Marie Loyd MD Patient Name: Elías Castle Date: 1990 Address: [address] [place] [id number] Sex: Male Rx Written Rx Dispensed Drug Quantity Days Supply Prescriber Name 10/22/2017 10/25/2017 dextroamp-amphetamin 30 mg tab 60 30 Rexdale, Jaz Miranda MD 09/24/2017 09/24/2017 dextroamp-amphetamin 30 mg tab 60 30 RexdaJaz joiner MD 09/24/2017 09/24/2017 clonazepam 1 mg tablet 60 30 RexdaJaz joiner MD 09/24/2017 09/24/2017 clonazepam 2 mg tablet 30 30 RexdaJaz joiner MD 09/24/2017 09/24/2017 dextroamp-amphetamin 20 mg tab 30 30 PaolodaJaz joiner MD pt here requesting detox from opiate and alcohol use , reports relapse 3 weeks ago , current heroin use 1 bundle ivdu , denies sharing needles , denies re-using needles , reports multiple OD most recently 3 weeks ago , Narcan by friend , went to hospital does not recall name " I was so out of it " claims sobriety since d/c from [place] Apr 2018 , barbra to [place] and worked in [employer], returned to [place] to visit w/ family ( paternal GP in the [place] ) and relapsed . Current symptoms as above , latest use earlier today . Pt reports long hx of opiate use since teens , reports multiple prior detox , on MMTP several years ago MDD 130 mg , voluntary taper , on Suboxone x 1 year voluntary taper , reports intermittent periods of sobriety from heroin / opiates while on methadone and Suboxone with ongoing use of other illicits ( cannabis , benzodiazepines ) . etoh : 1 pint liquor /day , reports blackouts benzo -illict use 2-6 mg/day reports w/d seizure x 1 in the past cocaine 1 gr 1 x /week crystal meth via inhalation - claims one time use cannabis - several x /week tobacco : 1/2 ppd. PMHx anxiety, degenerative disc disease, arthritis. OBJECTIVE: wnwd , mild distress track aguilera gali UE no abscess noted ASSESSMENT AND PLAN: Opiate dependence - Methadone taper Alcohol dependence - Librium taper Benzodiazepine abuse - Librium taper Cocaine abuse Cannabis abuse Nicotine dependence Amphetamine abuse, episodic
[2018-09-17] MEDS ORDERED: IBUPROFEN 400 MG TABLET (FP) PO PRN (14:51)
[2018-09-17] MEDS ORDERED: MAGNESIUM CITRATE 300 ML BOTTLE PO PRN (14:51)
[2018-09-17] MEDS ORDERED: hydrOXYzine HCL 25 MG TABLET (FP) PO PRN (14:51)
[2018-09-17] MEDS ORDERED: MELATONIN 5 MG TABLETS PO PRN (14:51)
[2018-09-17] MEDS ORDERED: METHOCARBAMOL 500 MG TABLET PO PRN (14:51)
[2018-09-17] MEDS ORDERED: BISMUTH SUBSALICYLATE 524 MG/30 ML UD PO PRN (14:51)
[2018-09-17] MEDS ORDERED: ACETAMINOPHEN 325 MG TABLET (FP) PO PRN ×2 (14:51)
[2018-09-17] MEDS ORDERED: MAGNESIUM HYDROX 2400MG/30ML ORAL SUSPENSION 30 ML CUP PO PRN (14:51)
[2018-09-17] MEDS ORDERED: NICOTINE POLACRILEX 2 MG GUM BUC PRN (14:51)
[2018-09-17] MEDS ORDERED: MENTHOL/PHENOL 1 EACH UD MM PRN (14:51)
[2018-09-17] MEDS ORDERED: chlordiazePOXIDE HCL 25 MG CAPSULE PO PRN (14:51)
[2018-09-17] MEDS ORDERED: MAG HYDROX/AL HYDROX/SIMETH 30 ML UNIT-DOSE CUP PO PRN (14:51)
[2018-09-17] MEDS ORDERED: METHADONE HCL 10 MG TABLET (FOR DETOX USE ONLY) PO ONE (16:30)
[2018-09-17] MEDS: chlordiazePOXIDE HCL 25 MG CAPSULE PO SCH ×2 (17:23→22:50)
[2018-09-17 17:39] LABS: HEMATOCRIT 44.2 % (35.4-49); HEMOGLOBIN 15.3 GM/dL (11.7-16.9); MCH 29.6 pg (25.7-33.7); MCHC 34.6 g/dl (32.0-35.9); MEAN CELL VOLUME 85.6 fl (80-96); MEAN PLT VOLUME 7.9 fl (7.5-11.1); PLATELET COUNT 332 K/MM3 (134-434); RBC 5.17 M/mm3 (4.00-5.60); RDW 12.2 % (11.9-15.9); WHITE BLOOD COUNT 11.2 K/mm3 (4.0-10.0)
[2018-09-17 17:48] LABS: ALBUMIN 4.2 g/dl (3.4-5.0); BILIRUBIN,TOTAL 0.5 mg/dL (0.2-1); BLOOD UREA NITROGEN 20.5 mg/dL (7-18); CALCIUM 9.1 mg/dL (8.5-10.1); POTASSIUM 4.3 mmol/L (3.5-5.1); TOT PROT 7.5 g/dl (6.4-8.2)
[2018-09-17] MEDS: THIAMINE HCL 100 MG TABLET (FP) PO SCH (22:50)
[2018-09-18] MEDS: chlordiazePOXIDE HCL 25 MG CAPSULE PO SCH ×4 (06:05→23:08)
[2018-09-18] MEDS ORDERED: METHADONE HCL 5 MG TABLET (FOR DETOX USE ONLY) ONE (09:16)
[2018-09-18] MEDS ORDERED: METHADONE HCL 10 MG TABLET (FOR DETOX USE ONLY) ONE (09:16)
[2018-09-18] MEDS ORDERED: METHADONE (DETOX) 20 MG, METHADONE (DETOX) 5 MG PO ONE (10:00)
[2018-09-18] MEDS: PRENATAL VITAMINS W/ FOLIC ACID TABLET (FP) PO SCH (10:27)
--- NOTE | 2018-09-18 10:56 | PN ---
[facility] CIWA - CIWA Score Nausea/Vomitin-No Nausea/No Vomiting Muscle Tremors: 2 Anxiety: 2 Agitation: 2 Paroxysmal Sweats: 3 Orientation: 0-Oriented Tacttile Disturbances: 0-None Auditory Disturbances: 0-None Visual Disturbances: 0-None Headache: 2-Mild CIWA-Ar Total Score: 11 S COWS - Scale Resting Pulse: 0= [place] 80 or Below Sweatin= Chills/Flushing Restless Observation: 1= Difficult to Sit Still Pupil Size: 0= Normal to Room Light Bone or Joint Aches: 1= Mild Discomfort Runny Nose/ Eye Tearin= None GI Upset > 30mins: 0= None Tremor Observation of Outstretched Hands: 2= Slight Tremor Visible Yawning Observation: 1= 1-2x During Session Anxiety or Irritability: 2=Irritable/Anxious Goose Flesh Skin: 0=Smooth Skin COWS Score: 8 S Progress Note (SOAP) Subjective: c/o sweats, anxiety, and headache. Objective: 09/18/18 10:54 Vital Signs 09/18/18 09/18/18 09/18/18 03:30 07:40 09:50 Temperature 97.3 F L 97.5 F L Pulse Rate 43 L 69 Respiratory 18 16 18 Rate Blood Pressure 100/60 112/74 Lab Results WBC 11.2 K/mm3 (4.0-10.0) H 09/17/18 15:00 RBC 5.17 M/mm3 (4.00-5.60) 09/17/18 15:00 Hgb 15.3 GM/dL (11.7-16.9) 09/17/18 15:00 Hct 44.2 % (35.4-49) 09/17/18 15:00 MCV 85.6 fl (80-96) 09/17/18 15:00 MCHC 34.6 g/dl (32.0-35.9) 09/17/18 15:00 RDW 12.2 % (11.9-15.9) 09/17/18 15:00 Plt Count 332 K/MM3 (134-434) D 09/17/18 15:00 Sodium 139 mmol/L (136-145) 09/17/18 15:00 Potassium 4.3 mmol/L (3.5-5.1) 09/17/18 15:00 Chloride 102 mmol/L (98-107) 09/17/18 15:00 Carbon Dioxide 32 mmol/L (21-32) 09/17/18 15:00 Anion Gap 5 MMOL/L (8-16) L 09/17/18 15:00 BUN 20.5 mg/dL (7-18) H 09/17/18 15:00 Creatinine 1.0 mg/dL (0.55-1.3) 09/17/18 15:00 Random Glucose 74 mg/dL (74-106) 09/17/18 15:00 Calcium 9.1 mg/dL (8.5-10.1) 09/17/18 15:00 Labs noted. Assessment: 09/18/18 10:54 AOX3, in no acute distress. Full ROM, ambulating in the unit. withdrawal symptoms. Plan: continue detox.
[2018-09-18] MEDS: THIAMINE HCL 100 MG TABLET (FP) PO SCH (23:08)
[2018-09-18] MEDS: cloNIDine HCL 0.1 MG TABLET PO PRN (23:10)
[2018-09-19] MEDS: chlordiazePOXIDE HCL 25 MG CAPSULE PO SCH ×4 (06:06→22:54)
[2018-09-19] MEDS ORDERED: METHADONE HCL 10 MG TABLET (FOR DETOX USE ONLY) PO ONE (10:00)
[2018-09-19] MEDS: PRENATAL VITAMINS W/ FOLIC ACID TABLET (FP) PO SCH (10:32)
--- NOTE | 2018-09-19 12:23 | PN ---
S CIWA - CIWA Score Nausea/Vomitin-No Nausea/No Vomiting Muscle Tremors: 3 Anxiety: 1-Mildly Anxious Agitation: 0-Normal Activity Paroxysmal Sweats: 3 Orientation: 0-Oriented Tacttile Disturbances: 0-None Auditory Disturbances: 0-None Visual Disturbances: 0-None Headache: 2-Mild CIWA-Ar Total Score: 9 [facility] COWS - Scale Resting Pulse: 0= [place] 80 or Below Sweatin= Chills/Flushing Restless Observation: 0= Sits Still Pupil Size: 0= Normal to Room Light Bone or Joint Aches: 1= Mild Discomfort Runny Nose/ Eye Tearin= None GI Upset > 30mins: 0= None Tremor Observation of Outstretched Hands: 2= Slight Tremor Visible Yawning Observation: 0= None Anxiety or Irritability: 2=Irritable/Anxious Goose Flesh Skin: 0=Smooth Skin COWS Score: 6 [facility] Progress Note (SOAP) Subjective: Patient c/o feeling tired, anxious, shakes and chills. Objective: 09/19/18 12:20 Laboratory Tests 09/17/18 09/17/18 09/17/18 15:00 15:00 15:00 WBC 11.2 H RBC 5.17 Hgb 15.3 Hct 44.2 MCV 85.6 MCH 29.6 MCHC 34.6 RDW 12.2 Plt Count 332 D MPV 7.9 Sodium 139 Potassium 4.3 Chloride 102 Carbon Dioxide 32 Anion Gap 5 L BUN 20.5 H Creatinine 1.0 Est GFR (CKD-EPI)AfAm 117.36 Est GFR (CKD-EPI)NonAf 101.26 Random Glucose 74 Calcium 9.1 Total Bilirubin 0.5 AST 19 ALT 64 H Alkaline Phosphatase 92 Total Protein 7.5 Albumin 4.2 RPR Titer Nonreactive Vital Signs Temperature 97.9 F 09/19/18 09:19 Pulse Rate 68 09/19/18 09:19 Respiratory Rate 18 09/19/18 09:19 Blood Pressure 106/60 09/19/18 09:19 O2 Sat by Pulse Oximetry (%) PE: alert and oriented x 3 skin warm, mild facial moisture ext + tremors, no visible edema amb ad keke irritable,anxious Assessment: 09/19/18 12:23 withdrawal sx Plan: continue detox encourage oral fluids monitor
[2018-09-19] MEDS: THIAMINE HCL 100 MG TABLET (FP) PO SCH (22:54)
[2018-09-19] MEDS: cloNIDine HCL 0.1 MG TABLET PO PRN (22:56)
[2018-09-20] MEDS ORDERED: chlordiazePOXIDE HCL 10 MG CAPSULE PO PRN
[2018-09-20] MEDS ORDERED: chlordiazePOXIDE HCL 10 MG CAPSULE PO SCH (05:00)
[2018-09-20 09:14] VITALS: BP 101/60; PULSE 76; TEMP 98.1
[2018-09-20] MEDS ORDERED: METHADONE (DETOX) 10 MG, METHADONE (DETOX) 5 MG PO ONE (10:00)
--- NOTE | 2018-09-20 10:11 | PN ---
S Progress Note Note: pt was admitted in withdrawals pt c/o of withdrawals symptoms and aggressive symptomatic management attempted however, pt in spite of extensive motivational counseling regarding the risk of relapse, seizures, DT's, OD and or loss, pt chose to sign out AMA.
--- NOTE | 2018-09-20 10:15 | DS ---
[facility] Detox Discharge Summary Admission Date: 09/17/18 - History Present History: Cocaine Dependence, Opioid Dependence, Sedative Dependence Pertinent Past History: pt arrived in withdrawals Laboratory Tests 09/17/18 09/17/18 09/17/18 15:00 15:00 15:00 WBC 11.2 H RBC 5.17 Hgb 15.3 Hct 44.2 MCV 85.6 MCH 29.6 MCHC 34.6 RDW 12.2 Plt Count 332 D MPV 7.9 Sodium 139 Potassium 4.3 Chloride 102 Carbon Dioxide 32 Anion Gap 5 L BUN 20.5 H Creatinine 1.0 Est GFR (CKD-EPI)AfAm 117.36 Est GFR (CKD-EPI)NonAf 101.26 Random Glucose 74 Calcium 9.1 Total Bilirubin 0.5 AST 19 ALT 64 H Alkaline Phosphatase 92 Total Protein 7.5 Albumin 4.2 RPR Titer Nonreactive today pt chose to sign out AMA. no s/s of withdrawals at this time. pt was advised of risk to relapse and or loss; pt understood the risks - Physical Exam Results Vital Signs: Vital Signs Temperature 98.1 F 09/20/18 09:13 Pulse Rate 76 09/20/18 09:13 Respiratory Rate 18 09/20/18 09:13 Blood Pressure 101/60 09/20/18 09:13 O2 Sat by Pulse Oximetry (%) Pertinent Admission Physical Exam Findings: pt arrived in withdrawal sx Laboratory Tests 09/17/18 09/17/18 09/17/18 15:00 15:00 15:00 WBC 11.2 H RBC 5.17 Hgb 15.3 Hct 44.2 MCV 85.6 MCH 29.6 MCHC 34.6 RDW 12.2 Plt Count 332 D MPV 7.9 Sodium 139 Potassium 4.3 Chloride 102 Carbon Dioxide 32 Anion Gap 5 L BUN 20.5 H Creatinine 1.0 Est GFR (CKD-EPI)AfAm 117.36 Est GFR (CKD-EPI)NonAf 101.26 Random Glucose 74 Calcium 9.1 Total Bilirubin 0.5 AST 19 ALT 64 H Alkaline Phosphatase 92 Total Protein 7.5 Albumin 4.2 RPR Titer Nonreactive pt left AMA all risks of relapsed explained to pt however, he chose to sign out. - Treatment Patient has Accepted a Rehab Referral to: referral provided - Medication Discharge Medications: Ambulatory Orders NK [No Known Home Medication] 01/24/18 - Diagnosis (1) Alcohol use disorder Status: Acute (2) Cocaine use disorder Status: Chronic (3) Methamphetamine abuse Status: Chronic (4) Nicotine use disorder Status: Acute (5) Opioid use disorder Status: Acute (6) ADHD (attention deficit hyperactivity disorder) Status: Acute (7) Anxiety and depression Status: Acute (8) Anxiety disorder Status: Acute (9) Insomnia Status: Acute (10) Substance induced mood disorder Status: Acute (11) Substance-induced anxiety disorder Status: Acute (12) Substance-induced sleep disorder Status: Acute (13) Weight loss Status: Acute (14) Cocaine dependence Status: Chronic Qualifiers: Substance use status: uncomplicated Qualified Code(s): F14.20 - Cocaine dependence, uncomplicated (15) HCV antibody positive Status: Chronic (16) IVDU (intravenous drug user) Status: Chronic (17) Nicotine dependence Status: Chronic Qualifiers: Nicotine product type: cigarettes Substance use status: uncomplicated Qualified Code(s): F17.210 - Nicotine dependence, cigarettes, uncomplicated (18) Opioid dependence with withdrawal Status: Chronic (19) Sedative, hypnotic or anxiolytic dependence with withdrawal, uncomplicated Status: Chronic - AMA Did Patient Leave Against Medical Advice: Yes (going home)
[2018-09-21] MEDS ORDERED: chlordiazePOXIDE HCL 10 MG CAPSULE PO SCH (05:00)
[2018-09-21] MEDS ORDERED: METHADONE HCL 10 MG TABLET (FOR DETOX USE ONLY) PO ONE (10:00)
[2018-09-22] MEDS ORDERED: chlordiazePOXIDE HCL 10 MG CAPSULE PO ONE (05:00)
[2018-09-22] MEDS ORDERED: METHADONE HCL 5 MG TABLET (FOR DETOX USE ONLY) PO ONE (06:00)
== END 2018-09-20 09:55 | disposition left against medical advice (07) | DRG 770 ==
LOC: YASAS 10:23 → Y6N 15:16
PROVIDERS: ADMIT Surgery; ATTEND Surgery
PROC: HZ2ZZZZ Detoxification Services for Substance Abuse Treatment (ICD-10-PCS; principal; 2018-09-17)
DX: F11.23 Opioid dependence with withdrawal (principal); F10.230 Alcohol dependence with withdrawal, uncomplicated; F13.230 Sedative, hypnotic or anxiolytic dependence with withdrawal, uncomplicated; F14.20 Cocaine dependence, uncomplicated; F15.10 Other stimulant abuse, uncomplicated; F17.210 Nicotine dependence, cigarettes, uncomplicated; F90.9 Attention-deficit hyperactivity disorder, unspecified type; F31.9 Bipolar disorder, unspecified; F19.24 Other psychoactive substance dependence with psychoactive substance-induced mood disorder; F19.280 Other psychoactive substance dependence with psychoactive substance-induced anxiety disorder; F19.282 Other psychoactive substance dependence with psychoactive substance-induced sleep disorder; G47.00 Insomnia, unspecified; R63.4 Abnormal weight loss; B18.2 Chronic viral hepatitis C; Z86.69 Personal history of other diseases of the nervous system and sense organs
CPT/HCPCS: 36415; 80053; 85027; 86593; J0735

== ENCOUNTER 2019-04-19 15:34 | Inpatient (IN) | payer OTHER ==
--- NOTE | 2019-04-19 15:52 | BHS.RME ---
Substance Use & Tx History - Substance Use History Opiates (Heroin) Substance amount: 4-8 bags Frequency of use: Daily Substance route: Injection (ex: intravenous or skin popping) Date of Last Use: 04/18/19 Cocaine (Powder) Substance amount: $100 Frequency of use: Daily Substance route: Injection (ex: intravenous or skin popping) - Last Treatment Date of last treatment: 09/2018 Treatment type: Substance Use Disorder (MARIAH) Where was last treatment: Detox (left [facility] in 09/2018 needs contract) Physical/Psych/Mental Status - Behavior General Behavior: Increased activity (restlessness, agitation) Eye Contact: Normal - Cooperativeness Cooperativeness: Cooperative - Thinking Thought Processes: Tight, Logical, Goal Directed Thought content: Future oriented - Physical Health Problems Is patient presently having any pain?: No Does patient presently have any injuries (include location): No Does patient currently have a fever: No Is patient : No COWS - Scale Resting Pulse: 1= [place] 81-100 Sweatin=Flushed/Facial Moisture Restless Observation: 1= Difficult to Sit Still Pupil Size: 1= Pupils >than Normal Bone or Joint Aches: 1= Mild Discomfort Runny Nose/ Eye Tearin= Nasal Congestion GI Upset > 30mins: 1= Stomach Cramp Tremor Observation: 1= Tremor [place], Not Seen Yawning Observation: 1= 1-2x During Session Anxiety or Irritability: 2=Irritable/Anxious Goose Flesh Skin: 0=Smooth Skin COWS Score: 12
[2019-04-19 17:03] VITALS: BMI 26.6
--- NOTE | 2019-04-19 17:20 | HP ---
COWS - Scale Resting Pulse: 1= [place] 81-100 Sweatin=Flushed/Facial Moisture Restless Observation: 1= Difficult to Sit Still Pupil Size: 1= Pupils >than Normal Bone or Joint Aches: 2= Severe Diffuse Aches Runny Nose/ Eye Tearin= Runny Nose/Eyes GI Upset > 30mins: 1= Stomach Cramp Tremor Observation: 2= Slight Tremor Visible Yawning Observation: 1= 1-2x During Session Anxiety or Irritability: 2=Irritable/Anxious Goose Flesh Skin: 0=Smooth Skin COWS Score: 15 CIWA Score - Admission Criteria [facility] Guidelines: Admission for Medically Managed Detox: Requires at least one of the followin. CIWA greater than 12 2. Seizures within the past 24 hours 3. Delirium tremens within the past 24 hours 4. Hallucinations within the past 24 hours 5. Acute intervention needed for co occurring medical disorder 6. Acute intervention needed for co occurring psychiatric disorder 7. Severe withdrawal that cannot be handled at a lower level of care (continued vomiting, continued diarrhea, abnormal vital signs) requiring intravenous medication and/or fluids 8. Admitting History and Physical - Smoking History Smoking history: Current every day smoker Have you smoked in the past 12 months: Yes Aproximately how many cigarettes per day: 14 - Alcohol/Substance Use Hx Alcohol Use: Yes Admission [facility] Chief Complaint: Heroin withdrawal symptoms Allergies/Adverse Reactions: Allergies Allergy/AdvReac Type Severity Reaction Status Date / Time No Known Allergies Allergy Verified 04/19/19 16:46 History of Present Illness: 28 years old male with a long history of heroin dependence (since age 17 years) is seeking admission to detox. Patient has been admitted multiple times and has a history of leaving against medical advice. Treatment contract obtained by [facility] and patient promised to complete this admission. He has medical history of hepatitis C, psych. history of Bipolar disorder, PTSD, Anxiety and depression. He denies suicide attempt and suicidal ideation at this time. He reports intravenous drug use and history of overdose and blackouts. Last overdose was in September 2018. Patient is being treated with Permitin for bed bug noted on admission. Exam Limitations: No Limitations - Ebola screening Have you traveled outside of the country in the last 21 days: No Have you had contact with anyone from an Ebola affected area: No Do you have a fever: No - Review of Systems Constitutional: Chills, Malaise, Night Sweats, Changes in sleep EENT: reports: Nose Congestion Respiratory: reports: No Symptoms reported Cardiac: reports: No Symptoms Reported GI: reports: Difficulty Swallowing, Nausea, Poor Fluid Intake, Abdominal cramping : reports: No Symptoms Reported Musculoskeletal: reports: Back Pain, Joint Pain, Muscle Pain, Neck Pain Integumentary: reports: Dryness, Flushing Neuro: reports: Tremors Endocrine: reports: No Symptoms Reported Hematology: reports: No Symptoms Reported Psychiatric: reports: Mood/Affect Appropiate, Orientated x3, Anxious, Depressed Other Systems: Reviewed and Negative Patient History - Patient Medical History Hx Anemia: No Hx Asthma: No Hx Chronic Obstructive Pulmonary Disease (COPD): No Hx Cancer: No Hx Cardiac Disorders: No Hx Congestive Heart Failure: No Hx Hypertension: No Hx Hypercholesterolemia: No Hx Pacemaker: No HX Cerebrovascular Accident: No Hx Seizures: No Hx Dementia: No Hx Diabetes: No Hx Gastrointestinal Disorders: No Hx Liver Disease: No Hx Genitourinary Disorders: No Hx Sexually Transmitted Disorders: No Hx Renal Disease (ESRD): No Hx Thyroid Disease: No Hx Human Immunodeficiency Virus (HIV): No (negative) Hx Hepatitis C: Yes (Positive Antibody Test; Negative Viral Load.) Hx Depression: Yes (Not on medication) Hx Suicide Attempt: No (Denies suicidal ideation at this time) Hx Bipolar Disorder: Yes (Not on medic ation) Hx Schizophrenia: No Other Medical History: Anxiety, PTSD - Not on medication - Patient Surgical History Past Surgical History: No Hx Neurologic Surgery: No Hx Cataract Extraction: No Hx Cardiac Surgery: No Hx Lung Surgery: No Hx Abdominal Surgery: No Hx Appendectomy: No Hx Cholecystectomy: No Hx Genitourinary Surgery: No Hx Orthopedic Surgery: No Anesthesia Reaction: No - PPD History Previous Implant?: Yes Documented Results: Negative w/proof Implanted On Prior [facility] Admission?: Yes Date: 01/26/18 Results: 0 mm PPD to be Administered?: Yes - Reproductive History Patient is a Female of Child Bearing Age (11 -55 yrs old): No (male) Patient : No - Smoking Cessation Smoking history: Current every day smoker Have you smoked in the past 12 months: Yes Aproximately how many cigarettes per day: 14 Cigars Per Day: 0 Hx Chewing Tobacco Use: No Initiated information on smoking cessation: Yes 'Breaking Loose' booklet given: 04/19/19 - Substance & Tx. History Hx Alcohol Use: No Hx Substance Use: Yes Substance Use Type: Cocaine, Heroin, Marijuana, Opiates Hx Substance Use Treatment: Yes ([facility]) - Substances abused Heroin Substance route: Injection Frequency: Daily Amount used: 20 bags Age of first use: 17 Date of last use: 04/19/19 Alprazolam (Xanax) Substance route: Oral Frequency: Daily Amount used: 6-10mg Age of first use: 15 Date of last use: 04/15/19 Benzodiazepine (Klonopin) Substance route: Oral Frequency: Daily Amount used: 6-10mg Age of first use: 15 Date of last use: 04/15/19 Cocaine Substance route: Injection Frequency: Daily Amount used: 2gm Age of first use: 15 Date of last use: 04/19/19 Admission Physical Exam S - Vital Signs Vital Signs: Vital Signs - 24 hr 04/19/19 16:52 Temperature 97.4 F L Pulse Rate 98 H Respiratory 18 Rate Blood Pressure 119/71 - Physical General Appearance: Yes: Severe Distress, Tremorous, Irritable, Sweating, Anxious HEENTM: Yes: Nasal Congestion Respiratory: Yes: Lungs Clear, Normal Breath Sounds, No Respiratory Distress Neck: Yes: Within Normal Limits Breast: Yes: Breast Exam Deferred Cardiology: Yes: Tachycardia Abdominal: Yes: Within Normal Limits Genitourinary: Yes: Within Normal Limits Back: Yes: Normal Inspection Musculoskeletal: Yes: Back pain, Muscle Pain Extremities: Yes: Tremors Neurological: Yes: Within Normal Limits Integumentary: Yes: Warm, Track [place] (both hands) Lymphatic: Yes: Within Normal Limits - Diagnostic (1) Depression Current Visit: Yes Status: Chronic Qualifiers: Depression Type: unspecified Qualified Code(s): F32.9 - Major depressive disorder, single episode, unspecified (2) Anxiety disorder Current Visit: Yes Status: Chronic Qualifiers: Anxiety disorder type: unspecified anxiety disorder Qualified Code(s): F41.9 - Anxiety disorder, unspecified (3) Cocaine dependence Current Visit: No Status: Chronic Qualifiers: Substance use status: uncomplicated Qualified Code(s): F14.20 - Cocaine dependence, uncomplicated (4) HCV antibody positive Current Visit: Yes Status: Chronic (5) IVDU (intravenous drug user) Current Visit: No Status: Chronic (6) Nicotine dependence Current Visit: Yes Status: Chronic Qualifiers: Nicotine product type: cigarettes Substance use status: in withdrawal Qualified Code(s): F17.213 - Nicotine dependence, cigarettes, with withdrawal (7) Opioid dependence with withdrawal Current Visit: Yes Status: Acute Cleared for Admission S - Detox or Rehab [facility] Level of Care: Medically Managed Detox Regimen/Protocol: Methadone Claeared for Rehab Admission: No Breathalyzer - Breathalyzer Breathalyzer: 0 Urine Drug Screen - Test Device Lot number: [id number] Expiration date: 01/29/21 - Control Is test valid?: Yes - Results Drug screen NEGATIVE: No Urine drug screen results: THC-Marijuana, AAMIR-Cocaine, FEN-Fentanyl, MOP-Opiates , MTD-Methadone Inpatient Rehab Admission - Rehab Decision to Admit Inpatient rehab admission?: No
[2019-04-19] MEDS ORDERED: MAGNESIUM HYDROX 2400MG/30ML ORAL SUSPENSION 30 ML CUP PO PRN (17:57)
[2019-04-19] MEDS ORDERED: MAGNESIUM CITRATE 300 ML BOTTLE PO PRN (17:57)
[2019-04-19] MEDS ORDERED: METHOCARBAMOL 500 MG TABLET PO PRN (17:57)
[2019-04-19] MEDS ORDERED: IBUPROFEN 400 MG TABLET (FP) PO PRN (17:57)
[2019-04-19] MEDS ORDERED: cloNIDine HCL 0.1 MG TABLET PO PRN (17:57)
[2019-04-19] MEDS ORDERED: MAG HYDROX/AL HYDROX/SIMETH 30 ML UNIT-DOSE CUP PO PRN (17:57)
[2019-04-19] MEDS ORDERED: MENTHOL/PHENOL 1 EACH UD MM PRN (17:57)
[2019-04-19] MEDS ORDERED: ACETAMINOPHEN 325 MG TABLET (FP) PO PRN ×2 (17:57)
[2019-04-19] MEDS ORDERED: BISMUTH SUBSALICYLATE 524 MG/30 ML UD PO PRN (17:57)
[2019-04-19] MEDS ORDERED: MELATONIN 5 MG TABLETS PO PRN (17:57)
[2019-04-19] MEDS ORDERED: NICOTINE POLACRILEX 2 MG GUM BUC PRN (17:57)
[2019-04-19] MEDS ORDERED: METHADONE HCL 10 MG TABLET (FOR DETOX USE ONLY) PO ONE (18:30)
[2019-04-19] MEDS: THIAMINE HCL 100 MG TABLET (FP) PO SCH (23:01)
[2019-04-20] MEDS ORDERED: METHADONE HCL 5 MG TABLET (FOR DETOX USE ONLY) ONE (09:27)
[2019-04-20] MEDS ORDERED: METHADONE HCL 10 MG TABLET (FOR DETOX USE ONLY) ONE (09:27)
[2019-04-20] MEDS ORDERED: METHADONE (DETOX) 20 MG, METHADONE (DETOX) 5 MG PO ONE (10:00)
[2019-04-20] MEDS: PRENATAL VITAMINS W/ FOLIC ACID TABLET (FP) PO SCH (10:15)
[2019-04-20] MEDS: NICOTINE 21 MG/24 HOURS TOPICAL PATCH TD SCH (10:15)
--- NOTE | 2019-04-20 10:51 | PN ---
BHS COWS - Scale Resting Pulse: 0= [place] 80 or Below Sweatin= No chills or Flushing Restless Observation: 1= Difficult to Sit Still Pupil Size: 1= Pupils >than Normal Bone or Joint Aches: 1= Mild Discomfort Runny Nose/ Eye Tearin= Nasal Congestion GI Upset > 30mins: 1= Stomach Cramp Tremor Observation of Outstretched Hands: 2= Slight Tremor Visible Yawning Observation: 1= 1-2x During Session Anxiety or Irritability: 2=Irritable/Anxious Goose Flesh Skin: 0=Smooth Skin COWS Score: 10 [facility] Progress Note (SOAP) Subjective: alert,irritable,anxious,interrupted sleep,pain in the body and back Objective: 04/20/19 10:54 Vital Signs Temperature 98.1 F 04/20/19 09:42 Pulse Rate 74 04/20/19 09:42 Respiratory Rate 18 04/20/19 09:42 Blood Pressure 120/72 04/20/19 09:42 O2 Sat by Pulse Oximetry (%) labs pending Assessment: 04/20/19 10:55 withdrawal symptom Plan: continue detox methadone regimen,add valium 10 mgs po q 4hrs prn for 72 hrs
--- NOTE | 2019-04-20 10:54 | CONSULT ---
[facility] Psychiatric Consult - Data Date of interview: 04/20/19 Psychiatric History: Patient was approached at bedside. Told underwriter solicitation director:" I don't want to see psychiatrist"
--- NOTE | 2019-04-20 11:33 | EKG ---
Test Reason : Blood Pressure : / mmHG Vent. Rate : 075 BPM Atrial Rate : 075 BPM P-R Int : 152 ms QRS Dur : 098 ms QT Int : 412 ms P-R-T Axes : 056 076 052 degrees QTc Int : 460 ms NORMAL SINUS RHYTHM NORMAL ECG WHEN COMPARED WITH ECG OF 11-FEB-2017 15:34, QT HAS LENGTHENED Confirmed by MD LESLI, DELANEY ([id number]) on 04/20/2019 11:33:03 AM Referred By: BOLA BONNER Confirmed By:DELANEY BALLESTEROS MD
[2019-04-20 11:57] LABS: HEMATOCRIT 34.6 % (35.4-49); HEMOGLOBIN 12.1 GM/dL (11.7-16.9); MCH 29.1 pg (25.7-33.7); MCHC 34.8 g/dl (32.0-35.9); MEAN CELL VOLUME 83.6 fl (80-96); PLATELET COUNT 164 K/MM3 (134-434); RBC 4.14 M/mm3 (4.00-5.60); RDW 12.5 % (11.9-15.9); WHITE BLOOD COUNT 9.3 K/mm3 (4.0-10.0)
[2019-04-20 11:59] LABS: ALBUMIN 2.9 g/dl (3.4-5.0); BILIRUBIN,TOTAL 0.2 mg/dL (0.2-1); BLOOD UREA NITROGEN 12.1 mg/dL (7-18); CALCIUM 8.1 mg/dL (8.5-10.1); CREATININE 0.8 mg/dL (0.55-1.3); POTASSIUM 3.6 mmol/L (3.5-5.1); TOT PROT 5.6 g/dl (6.4-8.2)
[2019-04-20] MEDS ORDERED: PERMETHRIN (NIX CREAM SCALP RINSE) 59 ML 1% BOTTLE TP ONE (12:30)
--- NOTE | 2019-04-20 13:00 | PN ---
[facility] Progress Note Note: patient has bed ellis bite right side of neck,localizied,when staying with his friend 3 days ago, has5% Permethrin cream application and application support manager yesterday no complaint,no itching adequately treated will keep shireennet in the room for himself for 24 hrs
[2019-04-20] MEDS: diazePAM 5 MG TABLET PO PRN (22:14)
[2019-04-20] MEDS: THIAMINE HCL 100 MG TABLET (FP) PO SCH (22:14)
[2019-04-21] MEDS: diazePAM 5 MG TABLET PO PRN ×4 (06:38→22:34)
--- NOTE | 2019-04-21 09:55 | PN ---
S COWS - Scale Resting Pulse: 0= [place] 80 or Below Sweatin= No chills or Flushing Restless Observation: 1= Difficult to Sit Still Pupil Size: 1= Pupils >than Normal Bone or Joint Aches: 1= Mild Discomfort Runny Nose/ Eye Tearin= Runny Nose/Eyes GI Upset > 30mins: 1= Stomach Cramp Tremor Observation of Outstretched Hands: 2= Slight Tremor Visible Yawning Observation: 1= 1-2x During Session Anxiety or Irritability: 2=Irritable/Anxious Goose Flesh Skin: 0=Smooth Skin COWS Score: 11 [facility] Progress Note (SOAP) Subjective: alert,irritable,anxious,interrupted sleep,tremor,pain in the body and back, nausea Objective: 04/21/19 09:54 Vital Signs Temperature 97.7 F 04/21/19 05:05 Pulse Rate 78 04/21/19 05:05 Respiratory Rate 19 04/21/19 05:05 Blood Pressure 141/68 04/21/19 05:05 O2 Sat by Pulse Oximetry (%) Laboratory Last Values WBC 9.3 K/mm3 (4.0-10.0) 04/20/19 07:35 RBC 4.14 M/mm3 (4.00-5.60) 04/20/19 07:35 Hgb 12.1 GM/dL (11.7-16.9) 04/20/19 07:35 Hct 34.6 % (35.4-49) L D 04/20/19 07:35 MCV 83.6 fl (80-96) 04/20/19 07:35 MCH 29.1 pg (25.7-33.7) 04/20/19 07:35 MCHC 34.8 g/dl (32.0-35.9) 04/20/19 07:35 RDW 12.5 % (11.9-15.9) 04/20/19 07:35 Plt Count 164 K/MM3 (134-434) D 04/20/19 07:35 MPV 8.0 fl (7.5-11.1) 04/20/19 07:35 Sodium 141 mmol/L (136-145) 04/20/19 07:35 Potassium 3.6 mmol/L (3.5-5.1) 04/20/19 07:35 Chloride 107 mmol/L (98-107) 04/20/19 07:35 Carbon Dioxide 29 mmol/L (21-32) 04/20/19 07:35 Anion Gap 5 MMOL/L (8-16) L 04/20/19 07:35 BUN 12.1 mg/dL (7-18) 04/20/19 07:35 Creatinine 0.8 mg/dL (0.55-1.3) 04/20/19 07:35 Est GFR (CKD-EPI)AfAm 139.91 04/20/19 07:35 Est GFR (CKD-EPI)NonAf 120.72 04/20/19 07:35 Random Glucose 92 mg/dL (74-106) 04/20/19 07:35 Calcium 8.1 mg/dL (8.5-10.1) L 04/20/19 07:35 Total Bilirubin 0.2 mg/dL (0.2-1) 04/20/19 07:35 AST 17 U/L (15-37) 04/20/19 07:35 ALT 46 U/L (13-61) 04/20/19 07:35 Alkaline Phosphatase 92 U/L (45-117) 04/20/19 07:35 Total Protein 5.6 g/dl (6.4-8.2) L 04/20/19 07:35 Albumin 2.9 g/dl (3.4-5.0) L 04/20/19 07:35 RPR Titer Nonreactive (NONREACTIVE) 04/20/19 07:35 Assessment: 04/21/19 09:54 withdrawal symptom Plan: continue detox methadone regimen
[2019-04-21] MEDS ORDERED: METHADONE HCL 10 MG TABLET (FOR DETOX USE ONLY) PO ONE (10:00)
[2019-04-21] MEDS: PRENATAL VITAMINS W/ FOLIC ACID TABLET (FP) PO SCH (10:20)
[2019-04-21] MEDS: NICOTINE 21 MG/24 HOURS TOPICAL PATCH TD SCH (10:21)
[2019-04-21 17:29] VITALS: TEMP 97.7
[2019-04-21] MEDS: THIAMINE HCL 100 MG TABLET (FP) PO SCH (22:32)
[2019-04-22] MEDS: diazePAM 5 MG TABLET PO PRN (03:18)
[2019-04-22 06:19] VITALS: BP 129/79; PULSE 49
--- NOTE | 2019-04-22 07:27 | DS ---
[facility] Detox Discharge Summary Admission Date: 04/19/19 Discharge Date: 04/22/19 - History Additional Comments: Patient is leaving against medical advice. Patient reports that he feels a lot better and does not want to continue the detoxification. Patient reminded of the contract he signed to complete detoxification and he replied, " I don't care , I just want to leave because I feel better." Patient was encouraged to wait and speak to a counselor about [facility]. He refused to wait . Pertinent Past History: Hep C, depression, Anxiety, PTSD, Nicotine dependence, opioid dependence , cocaine dependence, benzo. dependence - Physical Exam Results Vital Signs: Vital Signs Temperature 97.7 F 04/22/19 06:19 Pulse Rate 49 L 04/22/19 06:19 Respiratory Rate 16 04/22/19 06:19 Blood Pressure 129/79 04/22/19 06:19 O2 Sat by Pulse Oximetry (%) Laboratory Last Values WBC 9.3 K/mm3 (4.0-10.0) 04/20/19 07:35 RBC 4.14 M/mm3 (4.00-5.60) 04/20/19 07:35 Hgb 12.1 GM/dL (11.7-16.9) 04/20/19 07:35 Hct 34.6 % (35.4-49) L D 04/20/19 07:35 MCV 83.6 fl (80-96) 04/20/19 07:35 MCH 29.1 pg (25.7-33.7) 04/20/19 07:35 MCHC 34.8 g/dl (32.0-35.9) 04/20/19 07:35 RDW 12.5 % (11.9-15.9) 04/20/19 07:35 Plt Count 164 K/MM3 (134-434) D 04/20/19 07:35 MPV 8.0 fl (7.5-11.1) 04/20/19 07:35 Sodium 141 mmol/L (136-145) 04/20/19 07:35 Potassium 3.6 mmol/L (3.5-5.1) 04/20/19 07:35 Chloride 107 mmol/L (98-107) 04/20/19 07:35 Carbon Dioxide 29 mmol/L (21-32) 04/20/19 07:35 Anion Gap 5 MMOL/L (8-16) L 04/20/19 07:35 BUN 12.1 mg/dL (7-18) 04/20/19 07:35 Creatinine 0.8 mg/dL (0.55-1.3) 04/20/19 07:35 Est GFR (CKD-EPI)AfAm 139.91 04/20/19 07:35 Est GFR (CKD-EPI)NonAf 120.72 04/20/19 07:35 Random Glucose 92 mg/dL (74-106) 04/20/19 07:35 Calcium 8.1 mg/dL (8.5-10.1) L 04/20/19 07:35 Total Bilirubin 0.2 mg/dL (0.2-1) 04/20/19 07:35 AST 17 U/L (15-37) 04/20/19 07:35 ALT 46 U/L (13-61) 04/20/19 07:35 Alkaline Phosphatase 92 U/L (45-117) 04/20/19 07:35 Total Protein 5.6 g/dl (6.4-8.2) L 04/20/19 07:35 Albumin 2.9 g/dl (3.4-5.0) L 04/20/19 07:35 RPR Titer Nonreactive (NONREACTIVE) 04/20/19 07:35 Pertinent Admission Physical Exam Findings: opioid dependence with withdrawal benzo dependence cocaine dependence IVDU Meth. dependence HCV antibody positive Bedbug infestation (treated on admission) - Medication Discharge Medications: Ambulatory Orders NK [No Known Home Medication] 01/24/18 - Diagnosis (1) Depression Current Visit: Yes Status: Chronic Qualifiers: Depression Type: unspecified Qualified Code(s): F32.9 - Major depressive disorder, single episode, unspecified (2) Anxiety disorder Current Visit: Yes Status: Chronic Qualifiers: Anxiety disorder type: unspecified anxiety disorder Qualified Code(s): F41.9 - Anxiety disorder, unspecified (3) Cocaine dependence Current Visit: Yes Status: Chronic Qualifiers: Substance use status: uncomplicated Qualified Code(s): F14.20 - Cocaine dependence, uncomplicated (4) HCV antibody positive Current Visit: Yes Status: Chronic (5) IVDU (intravenous drug user) Current Visit: Yes Status: Chronic (6) Nicotine dependence Current Visit: Yes Status: Chronic Qualifiers: Nicotine product type: cigarettes Substance use status: in withdrawal Qualified Code(s): F17.213 - Nicotine dependence, cigarettes, with withdrawal (7) Opioid dependence with withdrawal Current Visit: Yes Status: Acute - AMA Did Patient Leave Against Medical Advice: Yes
[2019-04-22] MEDS ORDERED: METHADONE (DETOX) 10 MG, METHADONE (DETOX) 5 MG PO ONE (10:00)
[2019-04-23] MEDS ORDERED: METHADONE HCL 10 MG TABLET (FOR DETOX USE ONLY) PO ONE (10:00)
[2019-04-24] MEDS ORDERED: METHADONE HCL 5 MG TABLET (FOR DETOX USE ONLY) PO ONE (06:00)
== END 2019-04-22 07:00 | disposition left against medical advice (07) | DRG 770 ==
LOC: YASAS 15:34 → Y6N 17:30
PROVIDERS: ADMIT Allergy & Immunology; ATTEND Allergy & Immunology
PROC: HZ2ZZZZ Detoxification Services for Substance Abuse Treatment (ICD-10-PCS; principal; 2019-04-19)
DX: F11.23 Opioid dependence with withdrawal (principal); F13.20 Sedative, hypnotic or anxiolytic dependence, uncomplicated; F14.20 Cocaine dependence, uncomplicated; F17.210 Nicotine dependence, cigarettes, uncomplicated; F41.8 Other specified anxiety disorders; F32.9 Major depressive disorder, single episode, unspecified; F43.10 Post-traumatic stress disorder, unspecified; B18.2 Chronic viral hepatitis C; S10.86XA Insect bite of other specified part of neck, initial encounter; W57.XXXA Bitten or stung by nonvenomous insect and other nonvenomous arthropods, initial encounter; Y93.89 Activity, other specified; Y92.89 Other specified places as the place of occurrence of the external cause; Y99.8 Other external cause status
CPT/HCPCS: 36415; 80053; 85027; 86593; 93005; 93010